=== PATIENT | male | born 1955 | race Caucasian/White ===

== ENCOUNTER → 2017-11-08 07:00 | Outpatient (CLI) | payer OTHER, SELFPAY ==
[2017-11-08 07:05] LABS: MANUAL DIFFERENTIAL MANUAL DIFFERENTIAL (MANUAL DIFF)
[2017-11-08 07:45] LABS: Basophils % 0.4 % (0.1-2.0); Eosinophils # 0.1 K/mm3 (0.0-0.4); Eosinophils % 1.4 % (0.1-12.0); Hematocrit 51.7 % (42.0-52.0); Hemoglobin 16.3 g/dL (14.1-18.0); Lymphocytes # 2.3 K/mm3 (0.7-4.5); Lymphocytes % 35.1 K/mm3 (10-50); Mean Corpuscular HGB Conc 31.5 g/dL (31.8-35.4); Mean Corpuscular Volume 95.3 fl (80-94); Monocytes # 0.4 K/mm3 (0.1-1.0); Monocytes % 6.2 % (1.7-9.3); Neutrophils # 3.7 K/mm3 (1.8-7.8); Platelet Count 174 K/mm3 (142-424); Red Blood Count 5.43 M/mm3 (4.60-6.20); Red Cell Distribution Width 12.9 % (11.5-17.5); White Blood Count 6.6 K/mm3 (4.8-10.8)
[2017-11-08 07:59] LABS: Alanine Aminotransferase 48 U/L (12-78); Albumin Level 3.9 gm/dL (3.4-5.0); Albumin/Globulin Ratio 1.2 (1.1-1.8); Alkaline Phosphatase 74 U/L (46-116); Anion Gap 10.5 mEq/L (5-15); Aspartate Amino Transferase 17 U/L (15-37); Bilirubin,Total 0.3 mg/dL (0.2-1.0); Blood Urea Nitrogen 17 mg/dL (7-18); Calcium 8.5 mg/dL (8.5-10.1); Carbon Dioxide 31 mmol/L (21.0-32.0); Chloride 106 mmol/L (98-107); Chol/HDL Ratio 3.6 (1-3.5); Cholesterol 183 mg/dL (140-200); Creatinine,Serum 0.97 mg/dL (0.70-1.30); Estimated Glomerular Filt Rate 79 ml/min (>60); Free T4 (Free Thyroxine) 0.86 ng/dl (0.76-1.46); GFR (African American) 95 ML/MIN (>60); Globulin 3.2 gm/dl (1.3-3.2); Glucose 110 mg/dL (74-106); HDL Cholesterol 51 mg/dL (27-67); LDL Cholesterol 122 mg/dL (0-130); Potassium 4.5 mmoL/L (3.5-5.1); Prostate Specific Ag Screen 0.1 ng/mL (0.0-4.0); Sodium 143 mmol/L (136-145); Thyroid Stimulating Hormone 3.63 uIU/ml (0.358-3.740); Total Protein,Serum 7.1 gm/dL (6.4-8.2); Triglycerides 48 mg/dL (30-200); VLDL Cholesterol 10 mg/dL (0-40)
[2017-11-08 08:05] LABS: Hemoglobin A1C 5.8 % (0.0-7.0)
[2017-11-08 11:16] LABS: Eosinophils % 1 % (0-3); Lymphocytes % 31 % (10-50); Monocytes % 2 % (2-9); Neutrophils % 66 % (42-76); Platelet Estimate Normal; RBC Morphology Normal; Total Cells Counted 100
[2017-11-11 11:18] LABS: Creatinine, Urine 273.1 mg/dL (Not Estab.); Microalbumin, Urine 14.5 ug/mL (Not Estab.)
== END ==
PROVIDERS: Visit Provider Nurse Practitioner
DX: J44.9 Chronic obstructive pulmonary disease, unspecified (principal); E78.5 Hyperlipidemia, unspecified; I10 Essential (primary) hypertension; N40.0 Benign prostatic hyperplasia without lower urinary tract symptoms; Z13.1 Encounter for screening for diabetes mellitus; Z13.29 Encounter for screening for other suspected endocrine disorder
CPT/HCPCS: 36415; 80053; 80061; 82043; 82570; 83036; 84439; 84443; 85007; 85014; 85018; 85048; 85049; G0103

== ENCOUNTER → 2021-07-26 17:37 | Outpatient (CLI) | payer BC, SELFPAY ==
--- NOTE | 2021-07-26 | XR_ITS ---
PROCEDURE INFORMATION: Exam: XR Chest Exam date and time: 07/26/2021 12:00 AM Age: 65 years old Clinical indication: Prior surgery; Surgery date: 6+ months; Surgery type: Cardiac stents placed. ; Patient HX: Cough, shortness of breath, weakness since early June. Smoker, cardiac stents in place. Covid screening. TECHNIQUE: Imaging protocol: XR of the chest. Views: 1 view. COMPARISON: CR CXR CHEST(2 VIEWS-NOT PORTABLE) 05/29/2016 10:50 AM FINDINGS: Lungs: Unremarkable. No consolidation. Pleural spaces: Unremarkable. No pleural effusion. No pneumothorax. Heart/Mediastinum: Unremarkable. No cardiomegaly. Bones/joints: Unremarkable. IMPRESSION: No acute findings.
[2021-07-26 18:16] LABS: Basophils # 0.1 K/mm3 (0-0.2); Basophils % 1.1 % (0.1-2.0); Eosinophils # 0.1 K/mm3 (0.0-0.4); Eosinophils % 0.8 % (0.1-12.0); Hematocrit 45.4 % (42.0-52.0); Hemoglobin 15.1 g/dL (14.1-18.0); Lymphocytes # 2.9 K/mm3 (0.7-4.5); Lymphocytes % 29.1 % (10-50); Mean Corpuscular HGB Conc 33.3 g/dL (31.8-35.4); Mean Corpuscular Volume 93.3 fl (80-94); Mean Platelet Volume 9.1 fl (7.4-10.4); Monocytes # 0.6 K/mm3 (0.1-1.0); Monocytes % 5.6 % (1.7-9.3); Neutrophils # 6.3 K/mm3 (1.8-7.8); Neutrophils % 63.4 % (37.0-80.0); Platelet Count 209 K/mm3 (142-424); Red Blood Count 4.87 M/mm3 (4.60-6.20); Red Cell Distribution Width 13.4 % (11.5-17.5); White Blood Count 9.9 K/mm3 (4.8-10.8)
[2021-07-26 19:01] LABS: Coronavirus 19 IgG Antibody Negative (Negative); Coronavirus 19 IgM Antibody Negative (Negative)
== END ==
PROVIDERS: PCP Nurse Practitioner; Visit Provider Nurse Practitioner
DX: Z20.822 Contact with and (suspected) exposure to COVID-19 (principal)
CPT/HCPCS: 36415; 71045; 85025; 86328; C9803; U0003; U0005

== ENCOUNTER → 2022-07-18 14:00 | Outpatient (CLI) | payer BC, SELFPAY ==
[2022-07-18 18:47] LABS: Basophils # 0.1 K/mm3 (0-0.2); Eosinophils # 0.2 K/mm3 (0.0-0.4); Eosinophils % 2.4 % (0.1-12.0); Hematocrit 46.5 % (42.0-52.0); Lymphocytes # 2.9 K/mm3 (0.7-4.5); Lymphocytes % 39.8 % (10-50); Mean Corpuscular HGB Conc 32.3 g/dL (31.8-35.4); Mean Corpuscular Hemoglobin 31.2 pg (27.0-31.2); Mean Corpuscular Volume 96.7 fl (80-94); Mean Platelet Volume 9.8 fl (7.4-10.4); Monocytes # 0.4 K/mm3 (0.1-1.0); Monocytes % 5.2 % (1.7-9.3); Neutrophils # 3.8 K/mm3 (1.8-7.8); Neutrophils % 51.5 % (37.0-80.0); Platelet Count 199 K/mm3 (142-424); Red Blood Count 4.81 M/mm3 (4.60-6.20); Red Cell Distribution Width 13.3 % (11.5-17.5); White Blood Count 7.3 K/mm3 (4.8-10.8)
[2022-07-18 18:59] LABS: Alanine Aminotransferase 35 U/L (12-78); Albumin Level 4.2 g/dl (3.5-5.0); Albumin/Globulin Ratio 1.8 (1.1-1.8); Alkaline Phosphatase 94 U/L (38-126); Anion Gap 13.1 mEq/L (5-15); Aspartate Amino Transferase 33 U/L (17-59); Bilirubin,Total 0.4 mg/dl (0.2-1.3); Blood Urea Nitrogen 18 mg/dl (9-20); Calcium 9.3 mg/dl (8.4-10.2); Carbon Dioxide 25 mmol/L (22.0-30.0); Chloride 104 mmol/L (98-107); Chol/HDL Ratio 3.5 (1-3.5); Cholesterol 166 mg/dl (140-200); Estimated Glomerular Filt Rate 113 ml/min (>60); GFR (African American) 137 ML/MIN (>60); Globulin 2.4 g/dL (1.3-3.2); Glucose 88 mg/dl (74-100); HDL Cholesterol 48 mg/dl (40-60); Potassium 4.1 mmoL/L (3.5-5.1); Sodium 138 mmol/L (136-145); Total Protein,Serum 6.6 g/dl (6.3-8.2); Triglycerides 131 mg/dl (30-150); VLDL Cholesterol 26 mg/dL (0-40)
[2022-07-18 19:10] LABS: Direct LDL Cholesterol 98.46 mg/dL (100-129)
[2022-07-18 19:15] LABS: Hemoglobin A1C 5.9 % (4.0-6.0)
[2022-07-18 19:30] LABS: Thyroid Stimulating Hormone 3.14 uIU/mL (0.465-4.68)
[2022-07-18 19:49] LABS: Vitamin B12 337 pg/mL (239-931)
== END ==
PROVIDERS: PCP Nurse Practitioner; Visit Provider Nurse Practitioner
DX: I10 Essential (primary) hypertension (principal); E78.5 Hyperlipidemia, unspecified; Z79.899 Other long term (current) drug therapy
CPT/HCPCS: 80053; 80061; 82043; 82607; 83036; 84443; 85025

== ENCOUNTER 2022-11-19 16:33 | Emergency (ER) | payer OTHER, SELFPAY ==
--- NOTE | 2022-11-19 16:53 | XR_ITS ---
PROCEDURE INFORMATION: Exam: XR Right Shoulder Exam date and time: 11/19/2022 5:03 PM Age: 67 years old Clinical indication: Pain; Shoulder; Right; Additional info: Pain after lifting heavy object TECHNIQUE: Imaging protocol: Radiologic exam of the right shoulder. Views: 2 or more views. COMPARISON: CR XR CHEST PORTABLE 07/26/2021 5:56 PM FINDINGS: Bones/joints: The acromioclavicular joint is normal. No visible fracture or dislocation. No calcific tendinitis Soft tissues: Normal. IMPRESSION: No visible fracture or dislocation.
[2022-11-19 17:10] VITALS: BP 148/75; PULSE 78; RESP 20; TEMP 36.6; O2SAT 96; BMI 33.0
--- NOTE | 2022-11-19 17:51 | XR_ITS ---
PROCEDURE INFORMATION: Exam: XR Right Scapula Exam date and time: 11/19/2022 5:51 PM Age: 67 years old Clinical indication: Shoulder; Patient HX: Pain in right scapula after lifting a heavy door. TECHNIQUE: Imaging protocol: Radiologic exam of the right scapula. Complete exam. COMPARISON: CR XR CHEST PORTABLE 07/26/2021 5:56 PM FINDINGS: Bones/joints: No visible fracture or dislocation. Soft tissues: Normal. IMPRESSION: No visible fracture or dislocation.
--- NOTE | 2022-11-19 17:52 | EXP.UTC ---
Discharge Plan Disposition Patient Disposition: Home, Self-Care Condition: Good Prescriptions Prescriptions: New methocarbamol 500 mg tablet 500 mg PO BID PRN (Reason: muscle pain) Qty: 12 0RF No Action fluticasone propionate 50 mcg/actuation spray,suspension 1 spray intranasal DAILY Qty: 16 2RF Rx Instructions: administer into each nostril cetirizine 10 mg tablet 10 mg PO DAILY Qty: 90 1RF albuterol sulfate 90 mcg/actuation HFA aerosol inhaler 2 puff inhalation Q6H PRN azithromycin 250 mg tablet See Rx Instructions PO .COMPLEX Qty: 6 0RF Rx Instructions: For 250 mg dose pack: take 500 mg today (day 1), then 250 mg for 4 days (days 2-5) PO bupropion HCl 150 mg tablet extended release 24 hr 150 mg PO DAILY Qty: 90 1RF clopidogrel 75 mg tablet 75 mg PO DAILY Qty: 90 1RF doxazosin 2 mg tablet 1 mg PO DAILY Qty: 45 1RF finasteride 5 mg tablet 5 mg PO DAILY Qty: 90 1RF hydrochlorothiazide 12.5 mg tablet 12.5 mg PO DAILY Qty: 90 1RF losartan 100 mg tablet 100 mg PO DAILY Qty: 90 1RF meloxicam 15 mg tablet 15 mg PO DAILY Qty: 90 1RF metoprolol succinate 50 mg tablet extended release 24 hr 50 mg PO DAILY Qty: 90 1RF rosuvastatin 20 mg tablet 20 mg PO DAILY Qty: 90 1RF Incruse Ellipta 62.5 mcg/actuation blister with device 1 inh inhalation DAILY 90 Days Qty: 3 1RF Referrals Follow up/Referrals: Shai Au JR, MD [Physician] - See instructions (Call office for appointment if pain continues) Jazmyne Gurrola MD [Primary Care Provider] - See instructions Activity Restrictions/Add. Instructions Additional Instructions/Restrictions: *Ibuprofen fouzia 6 hours with meal as needed for pain/inflammation if you can take it *Not additional anti-inflammatory like motrin, aleve, advil with the above amount of ibuprofen. You can still take Tylenol every 4 hours as needed if you need something else for pain *Ice 20 minutes every 2 hours for the first 48 hours after the initial injury followed by moist heat every 20 minutes 3-4 times a day to affected area *Muscle relaxer every 12 hours as needed for muscle spasms but remember, it WILL cause drowsiness You cannot take it and drive, operate machinery or care for small children. *Keep this area active, no movement leads to more stiffness, However take it easy and avoid heavy lifting pushing or pulling *Follow up with you family doctor if no improvement for further treatment Clinical Impressions Clinical Impression: Right shoulder strain Stand Alone Forms Stand Alone Forms: Work/School Release Instructions Patient Instructions: DI for Shoulder Pain [place]charge [place] [facility] [place] Stated complaint: WC 11/15@1100 Injured R Shoulder Mode of Arrival: Ambulatory Source of Information: Patient Limitations: No Limitations Time Seen by Provider: 11/19/22 17:52 Description of Symptoms (Recalled from Triage Doc. by RN): PATIENT C/O RIGHT SHOULDER PAIN. HE STATES HE WAS UNLOADING A CAR DOOR AT WORK ON FRIDAY AND INJURED THE SHOULDER HEENT Symptoms (Recalled from RN notes): No Resp Symptoms (Recalled from RN notes): No Skin Symptoms (Recalled from RN notes): No MS Symptoms (Recalled from RN notes): Yes Functional Status (Recalled from RN notes): WNL History of Present Illness Provider Complaint: Patient states that he was unloading a door Friday at work and the weight shifted on his right shoulder States that he felt a pop in his right shoulder blade area and has been having pain ever since in shoulder blade area and right shoulder States that area feels tight like he may have pulled or torn a muscle States that he hasnt been able to lift up anything since without having pain but is able to move area and raise arm just not able to lift anything Related Data Home Medications Medication Instructions Recorded Confirmed albuterol sulfate 90 mcg/actuation 2 puff inhalation
[2022-11-19 18:45] VITALS: BP 148/75; PULSE 78; RESP 20; TEMP 36.6; O2SAT 96
== END 2022-11-19 18:52 | disposition home or self-care (01) ==
PROVIDERS: Emergency Provider Nurse Practitioner; PCP Family Medicine
DX: S43.401A Unspecified sprain of right shoulder joint, initial encounter (principal); X50.0XXA Overexertion from strenuous movement or load, initial encounter
CPT/HCPCS: 73010; 73030; 99212; 99214; G0463

== ENCOUNTER 2024-04-25 04:40 | Inpatient (IN) | payer BC, SELFPAY ==
[2024-04-25] VITALS (20 sets, daily range): BP systolic 120–157; BP diastolic 69–88; PULSE 53–62; RESP 16–27; TEMP 36.4–36.8; O2SAT 90–99; BMI 31.4; BMI 34.0; BMI 33.7
--- NOTE | 2024-04-25 04:43 | ECG_ITS ---
APPROVED REPORT Exam: Resting ECG HR:63 bpm ECG Measurements Heart Rate 63 AXES SC 197 P 9 QRSd 109 QRS 34 QT 411 T 86 QTc 419 Conclusion SINUS RHYTHM INDETERMINATE AXIS ST ELEVATION, CONSIDER INFERIOR INJURY [MARKED ST ELEVATION W/O NORMALLY INFLECTED T-WAVE IN II/aVF] ACUTE SC Elevation in lead II, 3, aVF with ST depression in lead I, aVL, V2. Ischemic changes of inferior distribution STEMI Electronically signed by : AIDA MCCALL, 04/25/2024 06:54:36
--- NOTE | 2024-04-25 04:45 | PC.NURSE ---
Late Entry: @ 416- Report received from [place] EMT-P with suspected STEMI. Gave phone # for STEMI phone to received outside EKG and pt information to pre-register pt in [facility]. Mr Mar reports ETA 20min. @ 418- supervisor product inspection notified of the above information, as well as Dr. Ocampo. @ 419- 12 lead image received to [facility] phone. This image was viewed by Dr. Ocampo and forwarded to Dr. Meneses. Dr. Ocampo s/w Dr. Meneses and he states he would like the CATH team to be called. @ 421- Rosman notified to call the cath team in. @ 438- Ambulance arrived in ER ambulance bay @ 439- pt taken to trauma room 2 and bedside report received. EMS gave 324 mg Aspirin & 3x Nitro 0.4mg SL (last dose @ 433). @ 442- EKG obtained that showed STEMI with Sinus rhythm, rate 63, normal axis, normal MS and QTc, patient has greater than [address] elevation in lead II, 3, aVF, he has ST depression in lead I, aVL, V2. - per Dr. Ocampo note. @ 443- Dr. Ocampo s/w Dr. Meneses. Pt is being prepped. Rosman notified that this case is a STEMI. Asked to be paged. Dr. Meneses would like @ 444- Labs drawn, [address] to Left arm (by EMS), pt placed on STEMI pads and on Zoll monitoring, full set of VS obtained. Verifying home meds.
--- NOTE | 2024-04-25 04:47 | XR_ITS ---
PROCEDURE INFORMATION: Exam: XR Chest Exam date and time: 04/25/2024 4:50 AM Age: 68 years old Clinical indication: Pain; Chest pressure; Additional info: Cp TECHNIQUE: Imaging protocol: Radiologic exam of the chest. Views: 1 view. COMPARISON: CR XR CHEST PORTABLE 07/26/2021 5:56 PM FINDINGS: Lungs: Unremarkable. No consolidation. Pleural spaces: Unremarkable. No pleural effusion. No pneumothorax. Heart/Mediastinum: Unremarkable. No cardiomegaly. Bones/joints: Unremarkable. IMPRESSION: No acute findings.
--- NOTE | 2024-04-25 04:49 | HMH.EDCP ---
Discharge Plan Disposition Patient Disposition: Admitted Condition: Fair Clinical Impressions Clinical Impression: ST elevation (STEMI) myocardial infarction Qualifiers: Involved coronary artery: unspecified coronary artery Qualified Code(s): I21.3 - ST elevation (STEMI) myocardial infarction of unspecified site Discharge ED Provider: Genesis Ocampo HPI General Chief Complaint: Chest Pain Stated Complaint: Left sided chest pain, EMS STEMI Time Seen by Provider: 04/25/24 04:40 History of Present Illness HPI narrative: 68-year-old male with history of CAD, 2 prior stents, hypertension presents to the ER with left-sided chest pain that started approximately 7 hours prior to arrival. Patient states nothing seems to make it better or worse. Initially it was a 10 out of 10 radiating to the left arm. He eventually called EMS who gave him 324 mg of aspirin as well as 3 sublingual nitro. After receiving these medications, patient states his pain is down to a 3. Patient reports he does not have any headache, dizziness, nausea, vomiting, abdominal pain. He reported mild shortness of breath when his pain was worse but states this is improved. EMS reported no other medications in route. Related Data Home Medications ?Medication ?Instructions ?Recorded ?Confirmed albuterol sulfate 90 mcg/actuation 2 puff inhalation Q6H PRN 06/12/22 01/27/24 aerosol inhaler Previous Rx's ?Medication ?Instructions ?Recorded cetirizine 10 mg tablet 10 mg PO DAILY #90 tabs 06/12/22 fluticasone propionate 50 1 spray intranasal DAILY #16 grams 06/12/22 mcg/actuation nasal spray,suspension umeclidinium 62.5 mcg/actuation 1 inh inhalation DAILY 90 days #3 07/18/22 blister powder for inhalation ea (Incruse Ellipta) bupropion HCl 150 mg 24 hr tablet, See Rx Instructions .Route 01/13/23 extended release .COMPLEX #90 tabs hydrochlorothiazide 12.5 mg tablet See Rx Instructions .Route 01/13/23 .COMPLEX #90 tabs nicotine (polacrilex) 4 mg gum 4 mg buccal Q1H #100 ea 09/02/23 clopidogrel 75 mg tablet See Rx Instructions .Route 12/26/23 .COMPLEX #90 tabs doxazosin 2 mg tablet See Rx Instructions .Route 12/26/23 .COMPLEX #45 tabs finasteride 5 mg tablet See Rx Instructions .Route 12/26/23 .COMPLEX #90 tabs losartan 100 mg tablet See Rx Instructions .Route 12/26/23 .COMPLEX #90 tabs meloxicam 15 mg tablet See Rx Instructions .Route 12/26/23 .COMPLEX #90 tabs metoprolol succinate 50 mg See Rx Instructions .Route 12/26/23 tablet,extended release 24 hr .COMPLEX #90 tabs rosuvastatin 20 mg tablet See Rx Instructions .Route 12/26/23 .COMPLEX #90 tabs cefdinir 300 mg capsule 300 mg PO BID #20 caps 01/27/24 Allergies Allergy/AdvReac Type Severity Reaction Status Date / Time No Known Allergies Allergy Verified 01/27/24 15:31 [facility] Disclaimer: The information contained in this section may have been updated after the patient was seen, as this information can be updated by other users. Medical History (Updated 04/25/24 @ 06:48 by Michael Bhatia APRN) Tenosynovitis of right hand Radicular pain of right upper extremity Upper back pain on right side Varicosities of leg BPH (benign prostatic hyperplasia) Osteoarthritis ASCVD (arteriosclerotic cardiovascular disease) COPD (chronic obstructive pulmonary disease) Hyperlipidemia Essential hypertension Surgical History History of bilateral cataract extraction (~2019) History of heart artery stent (~2006) History of colonoscopy (~2015) History of transurethral resection of prostate Social History Smoking Status: Current every day smoker tobacco type: cigarettes packs per day: 1 alcohol intake: never current occupational status: employed Travel in the last 8 weeks: None ROS Obtained: Yes All systems reviewed & no additional complaints except as documented Po
--- NOTE | 2024-04-25 04:52 | PC.NURSE ---
Pt groin and wrist shved, placed in gown, placed on zoll
--- NOTE | 2024-04-25 04:53 | IR_ITS ---
APPROVED REPORT Patient Location: Emergent Tray Drier: BRYN Marcelino RT (R) PROCEDURES Left heart catheterization Left ventriculogram Selective coronary angiogram Drug-eluting stent deployment to the proximal mid and distal right coronary artery in a contiguous manner Drug-eluting stent deployment to the proximal LAD INDICATION Acute inferior ST elevation myocardial infarction, Severe multivessel disease with proximal LAD stenosis, Coronary artery disease Informed consent was obtained prior to the procedure. COMPLICATIONS NONE Estimated Blood Loss: LESS THAN 10 ML TECHNIQUE One percent lidocaine used to anesthetize the right anterior aspect of the wrist. The right radial artery was accessed via the Seldinger technique. A 6 [place] sheath was placed in the right radial artery, a [place] catheter was placed in the right coronary artery and a Choice PT extra-support wire was placed distally. Therapeutic heparin was already administered in the ER giving a therapeutic ACT. A 3.5 x 38 mm [place] frontier stent was deployed in the proximal right coronary artery at 14 ken reducing the critical stenosis to 0%. Additional haziness and disease was identified distally therefore a 3 mm x 38 mm [place] frontier stent was placed distal to the for stent is still overlapping and deployed at 14 ken. The balloon was brought back several millimeters and then deployed at 24 ken to post dilate and mesh the 2 stents. Excellent angiographic results were obtained CLARIBEL II flow was present at the beginning the procedure with CLARIBEL-3 flow at the end of the procedure. Following this left coronary angiography was performed which demonstrated severe proximal LAD disease. The Choice PT extra-support wire was placed into the LAD and a 3 mm x 38 mm [place] frontier stent was deployed at 20 ken reducing the severe stenosis to 0%. CLARIBEL-3 flow was present before and after the procedure. At the end of procedure the apparatus was removed the sheath was removed and hemostasis was achieved using TR banding patient was transferred to the postop putting in stable condition ANGIOGRAPHIC RESULTS The left main artery Normal The left anterior descending artery Has complex 40 and 60% stenosis followed by concentric 70% stenosis. The remaining LAD has mild atheromatous plaque. A large first diagonal artery is widely patent. The circumflex artery Is nondominant gives rise to large ramus intermedius which has proximal and mid vessel 20 to 30% stenoses. The circumflex artery itself is small and widely patent The right coronary artery Large and dominant initially with proximal greater than 90% stenosis followed by an additional concentric 90% stenosis. Distally there is hazy 50% in-stent restenosis in the distal segment The B[place]ON ventriculogram reveals Normal 60% The left ventricular end-diastolic pressure 15 mm nicholas IMPRESSION Critical disease in the proximal mid dominant right coronary artery as described above with successful stenting of the proximal mid to distal right coronary critical disease reduced to 0% with 2 contiguous drug-eluting stents Severe proximal LAD disease with successful stenting reducing the severe disease to 0% with 1 drug-eluting stent Normal ejection fraction Normal LVEDP PLAN 1. Plavix 75 mg daily plus aspirin 81 mg daily 2. LDL less than 55 to be achieved with high intensity statin 3. Patient requires 48 hours of continuous telemetry monitoring given the ST elevation myocardial infarction 4. Avoidance of tobacco products 5. Risk factor modification 6. Cardiac rehabilitation 7. Echocardiogram Friday Electronically signed by : Osbaldo Meneses MD 04/25/2024 05:48:12
--- NOTE | 2024-04-25 04:53 | PC.NURSE ---
blood drawn from EMS line and sent to lab
[2024-04-25 05:03] LABS: Basophils # 0.1 K/mm3 (0-0.2); Basophils % 0.7 % (0.1-2.0); Eosinophils # 0.2 K/mm3 (0.0-0.4); Eosinophils % 3.1 % (0.1-12.0); Hematocrit 46.7 % (42.0-52.0); Lymphocytes # 2.7 K/mm3 (0.7-4.5); Lymphocytes % 38.5 % (10-50); Mean Corpuscular HGB Conc 32.2 g/dL (31.8-35.4); Mean Corpuscular Hemoglobin 31.3 pg (27.0-31.2); Mean Corpuscular Volume 97.3 fl (80-94); Mean Platelet Volume 8.2 fl (7.4-10.4); Monocytes # 0.4 K/mm3 (0.1-1.0); Monocytes % 6.3 % (1.7-9.3); Neutrophils # 3.6 K/mm3 (1.8-7.8); Neutrophils % 51.4 % (37.0-80.0); Platelet Count 189 K/mm3 (142-424); Red Cell Distribution Width 13.5 % (11.5-17.5); White Blood Count 6.9 K/mm3 (4.8-10.8)
[2024-04-25 05:05] LABS: Albumin Level 3.8 g/dl (3.5-5.0); Chloride 108 mmol/L (98-107); Sodium 137 mmol/L (136-145)
[2024-04-25 05:06] LABS: Potassium 4.1 mmoL/L (3.5-5.1)
--- NOTE | 2024-04-25 05:06 | PC.NURSE ---
Dr. Ocampo notified this RN while I was preparing to administer Brillinta, that Dr. Meneses wants to stop Brillinta and changed to Plavix 75mg.
[2024-04-25 05:08] LABS: Alanine Aminotransferase 35 U/L (12-78); Albumin/Globulin Ratio 1.5 (1.1-1.8); Alkaline Phosphatase 60 U/L (38-126); Anion Gap 7.1 mEq/L (5-15); Aspartate Amino Transferase 29 U/L (17-59); Bilirubin,Total 0.5 mg/dl (0.2-1.3); Blood Urea Nitrogen 19 mg/dl (9-20); Calcium 8.2 mg/dl (8.4-10.2); Carbon Dioxide 26 mmol/L (22.0-30.0); Creatinine Clearance Estimated 122 mL/min (50-200); Estimated Glomerular Filt Rate 112 ml/min (>60); GFR (African American) 136 ML/MIN (>60); Globulin 2.5 g/dL (1.3-3.2); Glucose 115 mg/dl (74-100); Total Protein,Serum 6.3 g/dl (6.3-8.2)
--- NOTE | 2024-04-25 05:09 | PC.NURSE ---
Pt going to [facility] Changeover Operator with Yamila Mar RN and Shelbi Edwards RN. Stemi report filled out, new set of Pt labels, and EKG from ER sent with pt and staff. Pt continues to be on zoll and cardiac monitoring
[2024-04-25 05:21] LABS: Troponin I 0.01 ng/ml (0.00-0.034)
--- NOTE | 2024-04-25 06:05 | PC.NURSE ---
patient arrived to floor via stretcher from [facility] Supervisor @06:05
--- NOTE | 2024-04-25 06:35 | PC.NURSE ---
TRN attempted to release 1ml from TR band at 0635 per lab pack chemist post vital sheet. Patient with moderate bleeding noted. Air added back to TR until bleeding stopped. Will attempt to release 1ml of air in 15 min.
--- NOTE | 2024-04-25 06:42 | EXP.HP ---
History of Present Illness *Admission Date: 04/25/24 *Reason for visit:: CP *History of present illness: This is a 68-year-old male with history of CAD, 2 prior stents, hypertension presents to the ER with left-sided chest pain that started approximately 7 hours prior to arrival. Patient states nothing seems to make it better or worse. Initially it was a 10 out of 10 radiating to the left arm. He eventually called EMS who gave him 324 mg of aspirin as well as 3 sublingual nitro. After receiving these medications, patient states his pain is down to a 3. Patient reports he does not have any headache, dizziness, nausea, vomiting, abdominal pain. He reported mild shortness of breath when his pain was worse but states this is improved. EMS reported no other medications in route. Emergently taken to laboratory technician Patient seen after procedure. hemodinamically stable. still under sedation effects. at bedside confirm history. [facility] Disclaimer: The information contained in this section may have been updated after the patient was seen, as this information can be updated by other users. Medical History (Updated 04/25/24 @ 06:54 by Michael Bhatia APRN) Tenosynovitis of right hand Radicular pain of right upper extremity Upper back pain on right side Varicosities of leg BPH (benign prostatic hyperplasia) Osteoarthritis ASCVD (arteriosclerotic cardiovascular disease) COPD (chronic obstructive pulmonary disease) Hyperlipidemia Essential hypertension Surgical History History of bilateral cataract extraction (~2019) History of heart artery stent (~2006) History of colonoscopy (~2015) History of transurethral resection of prostate Social History Smoking Status: Current every day smoker tobacco type: cigarettes packs per day: 1 alcohol intake: never current occupational status: employed Travel in the last 8 weeks: None Review of Systems Review of Systems Review of systems:: pertinent systems reviewed and negative unless documented below Meds Home Medications and Allergies Home Medications ?Medication ?Instructions ?Recorded ?Confirmed ?Type clopidogrel 75 mg tablet 75 mg PO DAILY 04/25/24 04/25/24 History doxazosin 2 mg tablet 1 mg PO DAILY 04/25/24 04/25/24 History finasteride 5 mg tablet 5 mg PO DAILY 04/25/24 04/25/24 History hydrochlorothiazide 25 mg tablet 25 mg PO DAILY 04/25/24 04/25/24 History losartan 100 mg tablet 100 mg PO DAILY 04/25/24 04/25/24 History meloxicam 15 mg tablet 15 mg PO DAILY 04/25/24 04/25/24 History metoprolol succinate 50 mg 50 mg PO DAILY 04/25/24 04/25/24 History tablet,extended release 24 hr rosuvastatin 20 mg tablet 20 mg PO DAILY 04/25/24 04/25/24 History New Prescriptions to Start Prescriptions: Allergies Allergy/AdvReac Type Severity Reaction Status Date / Time No Known Allergies Allergy Verified 01/27/24 15:31 Exam Data for Last 24 hours Vital signs and Labs for Last 24 Hours: Temp Pulse Resp BP Pulse Ox O2 Del Method 97.6 F 60 20 123/69 91 L Room Air 04/25/24 06:00 04/25/24 05:59 04/25/24 05:59 04/25/24 05:59 04/25/24 05:59 04/25/24 05:59 Laboratory Results - last 24 hr 04/25/24 04:46: WBC 6.9, RBC 4.80, Hgb 15.0, Hct 46.7, MCV 97.3 H, MCH 31.3 H, MCHC 32.2, RDW 13.5, Plt Count 189, MPV 8.2, Neut % (Auto) 51.4, Lymph % (Auto) 38.5, [place] % (Auto) 6.3, Eos % (Auto) 3.1, Baso % (Auto) 0.7, Neut # (Auto) 3.6, Lymph # (Auto) 2.7, [place] # (Auto) 0.4, Eos # (Auto) 0.2, Baso # (Auto) 0.1, Sodium 137, Potassium 4.1, Chloride 108 H, Carbon Dioxide 26, Anion Gap 7.1, BUN 19, Creatinine 0.70, Estimated Creat Clear 122, Estimated GFR 112, Est GFR ( Amer) 136, Glucose 115 H, Calcium 8.2 L, Total Bilirubin 0.5, AST 29, ALT 35, Alkaline Phosphatase 60, Troponin I 0.01, Total Protein 6.3, Albumin 3.8, Globulin 2.5, Albumin/Globulin Ratio 1.5
--- NOTE | 2024-04-25 06:50 | PC.NURSE ---
1ml removed from TR band at this time. No bleeding noted at this time.
[2024-04-25 07:25] LABS: Basophils # 0.1 K/mm3 (0-0.2); Basophils % 0.9 % (0.1-2.0); Eosinophils # 0.2 K/mm3 (0.0-0.4); Eosinophils % 2.5 % (0.1-12.0); Hemoglobin 14.5 g/dL (14.1-18.0); Lymphocytes # 2.2 K/mm3 (0.7-4.5); Lymphocytes % 34.8 % (10-50); Mean Corpuscular HGB Conc 32.2 g/dL (31.8-35.4); Mean Corpuscular Hemoglobin 31.1 pg (27.0-31.2); Mean Corpuscular Volume 96.6 fl (80-94); Mean Platelet Volume 9.2 fl (7.4-10.4); Monocytes # 0.4 K/mm3 (0.1-1.0); Monocytes % 6.7 % (1.7-9.3); Neutrophils # 3.4 K/mm3 (1.8-7.8); Neutrophils % 55.1 % (37.0-80.0); Platelet Count 175 K/mm3 (142-424); Red Blood Count 4.66 M/mm3 (4.60-6.20); Red Cell Distribution Width 13.8 % (11.5-17.5); White Blood Count 6.2 K/mm3 (4.8-10.8)
[2024-04-25 07:34] LABS: CATHL Activated Clotting Time > 400 SEC (74-125)
[2024-04-25 07:36] LABS: Anion Gap 5.3 mEq/L (5-15); Blood Urea Nitrogen 18 mg/dl (9-20); Calcium 8.2 mg/dl (8.4-10.2); Carbon Dioxide 27 mmol/L (22.0-30.0); Chloride 108 mmol/L (98-107); Creatinine Clearance Estimated 121 mL/min (50-200); Estimated Glomerular Filt Rate 112 ml/min (>60); GFR (African American) 136 ML/MIN (>60); Glucose 109 mg/dl (74-100); Potassium 4.3 mmoL/L (3.5-5.1); Sodium 136 mmol/L (136-145)
[2024-04-25 08:07] LABS: Troponin I 0.08 ng/ml (0.00-0.034)
--- NOTE | 2024-04-25 09:35 | HMH.PHAINT1 ---
Pharmacy Intervention Comments: MEDICATION RECONCILIATION COMPLETED ON PATIENT USING EXTERNAL FILL HISTORY FROM PHARMACY. -[facility] WOOD, [place]
--- NOTE | 2024-04-25 09:37 | PC.NURSE ---
Addendum entered by Grazyna Hurtado RN 04/25/24 11:16: 1020 2ml of air removed 1040 TR band removed, site cleaned with chlorhexadine and dressed with t/t Original Note: start of shift (729) TR band was taken down by 2ml of air. 0745 1ml of air taken out r/t suspicion of bleeding at site. 0750 2ml of air added to TR band 0900 2ml of air removed 0915 2ml of air removed 0930 2ml of air removed 0945 2ml of air removed
[2024-04-25 11:38] LABS: Troponin I 0.14 ng/ml (0.00-0.034)
--- NOTE | 2024-04-25 12:25 | PC.NURSE ---
offered to assist pt up to chair for lunch. pt states that he doesn't think he wants to get up to the chair today. states that he is enjoying laying in bed and resting.
[2024-04-26] VITALS (7 sets, daily range): BP systolic 129–146; BP diastolic 72–82; PULSE 59–80; RESP 16–19; TEMP 36.6–37.2; O2SAT 93–97; BMI 33.6
--- NOTE | 2024-04-26 05:50 | PC.NURSE ---
Alert and oriented. Independent in the room. No complaints throughout the shift. R radial sight, dressing CDI. Pt is ordered echo this AM, pt has not had anything to eat or drink since midnight. Call light in reach.
--- NOTE | 2024-04-26 06:39 | CA_ITS ---
APPROVED REPORT EXAM: Comprehensive 2D, Doppler, and color-flow Echocardiogram Front Office Help: Gina Bedolla RT(R) Ht: 6 ft 2 in Wt: 265lbs BSA: 2.45 BP: 123/69 mmHg Indications: STEMI, CP, COPD, smoker, HTN, hyperlipidemia, 3 cardiac stents 04/25/24. Echo Enhancing Agent Indication: Endocardial border delineation Agent(s) / Amount(s) Used: Definity 2 cc 2D Dimensions Left Atrium 4.22 cm M: 3.0 - 4.0 LVEF (Case's) 57.90 % M: 52 - 72 LVOT 2.09 cm (M/F) 1.5-2.5 LV Volume 108.00 mL M: 62 - 150 LV Volume Index 44.1 mL/m2 M: 34 - 74 EF AP4 49.20 % EF AP2 65.7 % EF BP 57.9 % GL Strain -14.4 % M-Mode Dimensions RVDd 2.81 cm (0.9-2.6) LVDd 5.22 cm (3.5-5.7) Ao Diam 3.00 cm (2.0-3.7) LVDs 3.75 cm (3.5-5.7) IVSd 0.94 cm (0.6-1.1) PWd 0.85 cm (0.6-1.1) EF (Teich) 54.10% FS 28.20% EDV (Teich) 130.70 mL ESV (Teich) 60.00 mL LV Diastology E Decel Time 236 (160-240 msec) E/A Ratio 1.1 MED E' 7.3 (>= 7 cm/sec) E'/MED E' Ratio 10.11 (<= 14) LAT E' 10.3 (>= 10 cm/sec) E/LAT E' Ratio 7.17 (<= 14) Mitral Valve MV E Max Mike. 74.0 (40-130 cm/s) MV A Velocity 65.0 (40-130 cm/s) E/A Ratio 1.13 MV Decel. Time 236 (160-240 ms) Left Ventricle The left ventricle is normal size. The left ventricular systolic function is normal. The left ventricular ejection fraction is within the normal range. There is increased LV wall thickness. There is normal LV segmental wall motion. The left ventricular diastolic function is normal. No left ventricle thrombus noted on this study. LVEF is 55%. Right Ventricle The right ventricle not very well visualized, but grossly appears normal in size and function. Atria The left atrium size is normal. The right atrium size is normal. There is no Doppler evidence of interatrial shunt. Aortic Valve The aortic valve is mildly thickened. There is no aortic valvular stenosis. Trace aortic regurgitation. Mitral Valve The mitral valve is normal in structure. No evidence of mitral valve stenosis. Trace mitral regurgitation. Tricuspid Valve The tricuspid valve leaflets are thin and pliable. Trace tricuspid regurgitation. There is insufficient TR jet to estimate RVSP. Pulmonic Valve The pulmonary valve is normal in structure. Trace pulmonic regurgitation. Great Vessels The aortic root is normal in size. The ascending aorta is normal in size. IVC is normal in size and collapses >50% with inspiration. Pericardium There is a trivial, anterior pericardial effusion. No echo indications of tamponade. Conclusion Normal biventricular systolic function. No significant valvular stenosis or regurgitation. Electronically signed by : Norma Eaton MD 04/26/2024 11:09:50
[2024-04-26 07:19] LABS: Cholesterol 153 mg/dl (140-200); Triglycerides 136 mg/dl (30-150); VLDL Cholesterol 27 mg/dL (0-40)
[2024-04-26 07:20] LABS: Chol/HDL Ratio 4.6 (1-3.5); HDL Cholesterol 33 mg/dl (40-60)
[2024-04-26 07:30] LABS: Direct LDL Cholesterol 83.69 mg/dL (100-129)
[2024-04-26 08:15] LABS: Hemoglobin A1C 6.1 % (4.0-6.0)
[2024-04-26 09:37] LABS: 25-OH Vitamin D, Total 29.7 ng/mL (30-100)
--- NOTE | 2024-04-26 09:56 | EXP.CARD.CON ---
History of Present Illness History of Present Illness Consult date: 04/26/24 Requesting physician: Edson Dinh Consult reason: chest pain Chief complaint: chest pain History of present illness: This is a 68-year-old white gentleman who presents to the emergency department with complaints of chest pain. He has a past medical history of coronary artery disease with prior stenting, hypertension and hyperlipidemia. The patient states that he started having chest pain on Friday night. He states that this was in the left side of his chest and was a severe pressure sensation and radiated to the bilateral arms and caused them to feel heavy. He states that this was a 10 out of 10 pain. He states that he was short of breath with the chest pain. Denies any nausea or diaphoresis. He states that nothing was making the pain worse or better. He states that this was much worse than his chest pain in the past which required stenting so he decided to come to the emergency department. The patient was found to have a STEMI and taken directly to the cardiac catheterization laboratory and underwent stenting to the right coronary artery with 2 stents and stenting to the LAD with 1 stent. He tolerated the procedure well. This morning he denies any chest pain or pressure. He denies any shortness of breath or edema. He denies any fever, chills, nausea, vomiting, diarrhea, PND orthopnea. He states that he feels much better today. [facility] Disclaimer: The information contained in this section may have been updated after the patient was seen, as this information can be updated by other users. Medical History (Updated 04/26/24 @ 10:00 by Vilma Lauren APRN) Current smoker Coronary artery disease Tenosynovitis of right hand Radicular pain of right upper extremity Upper back pain on right side Varicosities of leg BPH (benign prostatic hyperplasia) Osteoarthritis ASCVD (arteriosclerotic cardiovascular disease) COPD (chronic obstructive pulmonary disease) Hyperlipidemia Essential hypertension Surgical History (Updated 04/26/24 @ 10:00 by Vilma Lauren APRN) Stented coronary artery History of bilateral cataract extraction (~2019) History of heart artery stent (~2006) History of colonoscopy (~2015) History of transurethral resection of prostate Social History Smoking Status: Current every day smoker tobacco type: cigarettes packs per day: 1 alcohol intake: never current occupational status: employed Travel in the last 8 weeks: None Review of Systems Review of Systems Review of systems:: pertinent systems reviewed and negative unless documented below Constitutional Constitutional: Reports system reviewed and no additional complaints, except as documented Eyes Eyes: Reports system reviewed and no additional complaints, except as documented ENT Ears, Nose, Mouth, and Throat: Reports system reviewed and no additional complaints, except as documented *Cardiovascular Cardiovascular: Reports system reviewed and no additional complaints, except as documented *Respiratory Respiratory: Reports system reviewed and no additional complaints, except as documented *Gastrointestinal Gastrointestinal: Reports system reviewed and no additional complaints, except as documented *Genitourinary Genitourinary: Reports system reviewed and no additional complaints, except as documented *Musculoskeletal Musculoskeletal: Reports system reviewed and no additional complaints, except as documented Integumentary/Breasts Skin/Breast: Reports system reviewed and no additional complaints, except as documented *Neurologic Neurologic: Reports system reviewed and no additional complaints, except as documented Psychiatric Psychiatric: Reports system reviewed and no additional complaints, except as documented Endocrine Endocrine: Reports system reviewed and no additional complaints, except as documented Hematologic/Lymphatic
--- NOTE | 2024-04-26 11:55 | EXP.ACUTE.PN ---
Subjective *Date: 04/26/24 *Time: 11:55 Interval history: Did well overnight. No arrhythmias on telemetry. Tolerating p.o. intake. Remains chest pain-free and on room air. Medical Exam Vital signs and Labs for Last 24 Hours: Vital Signs Temp Pulse Pulse Resp BP Pulse Ox O2 Del Method 04/26/24 11:32 97.9 F 62 18 134/82 97 Room Air 04/26/24 11:00 Room Air 04/26/24 09:00 Room Air 04/26/24 08:00 70 04/26/24 08:00 Room Air 04/26/24 08:00 98.1 F 68 18 143/80 H 96 Room Air 04/26/24 06:39 Room Air 04/26/24 05:00 Room Air 04/26/24 04:00 59 L 04/26/24 04:00 97.9 F 59 L 16 137/75 93 L Room Air 04/26/24 03:00 Room Air 04/26/24 01:00 Room Air 04/26/24 00:00 60 04/26/24 00:00 99.0 F 66 16 129/74 93 L Room Air 04/25/24 23:00 Room Air 04/25/24 21:00 Room Air 04/25/24 20:00 Room Air 04/25/24 20:00 62 04/25/24 19:57 98.2 F 57 L 16 157/79 H 96 Room Air 04/25/24 19:00 Room Air 04/25/24 17:00 Room Air 04/25/24 16:00 60 04/25/24 16:00 97.9 F 60 22 124/74 98 Room Air 04/25/24 15:00 Room Air 04/25/24 13:33 Room Air 04/25/24 13:00 60 18 142/76 H 91 L Room Air 04/25/24 12:00 60 04/25/24 12:00 98.1 F 55 L 18 130/71 95 Room Air Intake and Output 04/25/24 04/26/24 04/26/24 23:59 07:59 15:59 Intake Total 660 / 1160 240 / 240 Output Total 0 / 900 1 / 1 0 / 1 Balance 660 / 260 -1 / 239 240 / 239 Intake: Intake, Oral Amount 660 / 1160 240 / 240 Intake, Oral Supplement Amount 0 / 0 Output: Output, Urine Amount 0 / 900 0 Other: Number of Voids 0 Number of Unmeasured Voids 1 09 08 Weight 118.977 kg Patient Weight 04/26/24 23:59 Weight 118.977 kg Laboratory Results - last 24 hr 04/26/24 05:36: Hemoglobin A1c 6.1 H, Triglycerides 136, Cholesterol 153, LDL Cholesterol Direct 83.69 L, VLDL Cholesterol 27, HDL Cholesterol 33 L, Cholesterol/HDL Ratio 4.6 H, 25-OH Vitamin D Total 29.7 L I & O for Labs for Last 24 Hours: Intake & Output 04/23/24 04/24/24 04/25/24 04/26/24 23:59 23:59 23:59 23:59 Intake Total 1160 / 1160 240 / 240 Output Total 900 / 900 Balance 260 / 260 239 / 239 Weight 119.476 kg 118.977 kg Constitutional: Present no acute distress, obese and cooperative Head: Present atraumatic and normocephalic ENT: Present normal exam Respiratory: Present normal respiratory effort; Absent rhonchi, wheezes or crackles Cardiac: Present Reg Rate and Rhythm GI: Present normal bowel sounds; Absent tenderness Extremities: Present normal inspection and full ROM Skin: Present intact; Absent erythema Neuro: Present Grossly Intact, alert, awake, oriented x 3 and moves all extremities Assessment and Plan *Assessment and plan (1) ST elevation (STEMI) myocardial infarction: Status: Acute Qualifiers: Involved coronary artery: unspecified coronary artery Qualified Code(s): I21.3 - ST elevation (STEMI) myocardial infarction of unspecified site Category: Medical Code(s): I21.3 - ST elevation (STEMI) myocardial infarction of unspecified site (2) Status post left heart catheterization (LHC): Status: Acute Category: Medical Code(s): Z98.890 - Other specified postprocedural states (3) History of heart artery stent: Status: Acute Category: Surgical Code(s): Z95.5 - Presence of coronary angioplasty implant and graft (4) ASCVD (arteriosclerotic cardiovascular disease): Status: Acute Category: Medical Code(s): I25.10 - Atherosclerotic heart disease of [place] coronary artery without angina pectoris (5) COPD (chronic obstructive pulmonary disease): Status: Acute Qualifiers: COPD type: unspecified COPD Qualified Code(s): J44.9 - Chronic obstructive pulmonary disease, unspecified
--- NOTE | 2024-04-26 16:40 | PC.NURSE ---
pt has remained a&ox4 this shift. pt also has remained on room air. pt is still ambulating independently in room. pt has had no complaints this shift. echo was completed this morning. rt radial cath site dsg remains cdi. cardiology reordered pt home medications this morning. no new orders at this time. call light within reach.
[2024-04-27] VITALS: BP 133/71; PULSE 63; PULSE 64; RESP 16; TEMP 36.5; O2SAT 94
[2024-04-27 04:00] VITALS: BP 134/70; PULSE 60; PULSE 67; RESP 16; TEMP 36.7; O2SAT 93; BMI 33.3
--- NOTE | 2024-04-27 05:23 | PC.NURSE ---
Patient is alert and oriented x4. Patient has rested intermittently throughout the night. Patient reported that he was feeling much better today. He was given crackers and a Diet Pepsi for a snack. He received atorvastatin at bedtime per NOV. He has not reported any sort of chest pain or any abnormal symptoms this shift. Patient's lung sounds were clear and his bowel sounds are active. He has been tolerating ambulation very well and reported using the bathroom a few times this shift. He has been running sinus bradycardia on telemetry; other vital signs have remained stable this shift. His right radial cath site was observed. It is closed, healing, and no bleeding or drainage was present; he has approached 48 hours post-cath. Tegaderm and gauze dressing was removed during the previous shift after his shower. Patient has not had any complaints this shift. He is currently resting in bed watching TV. Call light is within reach.
[2024-04-27 06:29] LABS: Albumin Level 3.8 g/dl (3.5-5.0); Basophils # 0.1 K/mm3 (0-0.2); Basophils % 0.6 % (0.1-2.0); Chloride 107 mmol/L (98-107); Eosinophils # 0.1 K/mm3 (0.0-0.4); Eosinophils % 1.5 % (0.1-12.0); Hematocrit 46.3 % (42.0-52.0); Hemoglobin 14.7 g/dL (14.1-18.0); Lymphocytes % 24.7 % (10-50); Mean Corpuscular HGB Conc 31.7 g/dL (31.8-35.4); Mean Corpuscular Hemoglobin 30.9 pg (27.0-31.2); Mean Corpuscular Volume 97.7 fl (80-94); Mean Platelet Volume 9.1 fl (7.4-10.4); Monocytes # 0.6 K/mm3 (0.1-1.0); Monocytes % 6.7 % (1.7-9.3); Neutrophils # 5.4 K/mm3 (1.8-7.8); Neutrophils % 66.5 % (37.0-80.0); Platelet Count 184 K/mm3 (142-424); Potassium 3.8 mmoL/L (3.5-5.1); Red Blood Count 4.74 M/mm3 (4.60-6.20); Red Cell Distribution Width 13.8 % (11.5-17.5); Sodium 138 mmol/L (136-145); White Blood Count 8.2 K/mm3 (4.8-10.8)
[2024-04-27 06:32] LABS: Alanine Aminotransferase 28 U/L (12-78); Albumin/Globulin Ratio 1.5 (1.1-1.8); Alkaline Phosphatase 60 U/L (38-126); Anion Gap 7.8 mEq/L (5-15); Aspartate Amino Transferase 24 U/L (17-59); Bilirubin,Total 0.6 mg/dl (0.2-1.3); Blood Urea Nitrogen 12 mg/dl (9-20); Calcium 8.3 mg/dl (8.4-10.2); Carbon Dioxide 27 mmol/L (22.0-30.0); Creatinine Clearance Estimated 119 mL/min (50-200); Estimated Glomerular Filt Rate 96 ml/min (>60); GFR (African American) 117 ML/MIN (>60); Globulin 2.6 g/dL (1.3-3.2); Glucose 101 mg/dl (74-100); Magnesium 2.2 mg/dl (1.6-2.3); Total Protein,Serum 6.4 g/dl (6.3-8.2)
[2024-04-27 08:00] VITALS: BP 133/59; PULSE 64; PULSE 70; RESP 19; TEMP 37.3; O2SAT 95
--- NOTE | 2024-04-27 08:59 | EXP.CARD.PN ---
Subjective Subjective Date: 04/27/24 Time: 08:30 Principal diagnosis: STEMI Interval history: This is a 68-year-old white gentleman who presented to the emergency department found to have a STEMI. He underwent left cardiac catheterization and had stenting to the right coronary artery with 2 drug-eluting stents and 1 stent placed to the LAD. He tolerated the procedure well. The patient has been monitored 48 hours post intervention. He denies any chest pain or pressure. He denies any shortness of breath or edema. He denies any fever, chills, nausea, vomiting, diarrhea, PND orthopnea. His right radial site is healing well with no hematoma noted. The patient states that he is ready to be discharged home. Exam Data for Last 24 hours Vital signs and Labs for Last 24 Hours: Temp Pulse Resp BP Pulse Ox O2 Del Method O2 Flow Rate 99.2 F 64 19 133/59 L 95 Room Air 2 04/27/24 08:00 04/27/24 08:00 04/27/24 08:00 04/27/24 08:00 04/27/24 08:00 04/27/24 06:45 04/25/24 07:30 Laboratory Results - last 24 hr 04/26/24 05:36: 25-OH Vitamin D Total 29.7 L 04/27/24 05:30: WBC 8.2 D, RBC 4.74, Hgb 14.7, Hct 46.3, MCV 97.7 H, MCH 30.9, MCHC 31.7 L, RDW 13.8, Plt Count 184, MPV 9.1, Neut % (Auto) 66.5, Lymph % (Auto) 24.7, [place] % (Auto) 6.7, Eos % (Auto) 1.5, Baso % (Auto) 0.6, Neut # (Auto) 5.4, Lymph # (Auto) 2.0, [place] # (Auto) 0.6, Eos # (Auto) 0.1, Baso # (Auto) 0.1, Sodium 138, Potassium 3.8, Chloride 107, Carbon Dioxide 27, Anion Gap 7.8, BUN 12 D, Creatinine 0.80, Estimated Creat Clear 119, Estimated GFR 96, Est GFR ( Amer) 117, Glucose 101 H, Calcium 8.3 L, Magnesium 2.2, Total Bilirubin 0.6, AST 24, ALT 28, Alkaline Phosphatase 60, Total Protein 6.4, Albumin 3.8, Globulin 2.6, Albumin/Globulin Ratio 1.5 I & O for Last 24 hours: Intake & Output 04/24/24 04/25/24 04/26/24 04/27/24 23:59 23:59 23:59 23:59 Intake Total 1160 / 1160 1829 222 / 222 Output Total 900 / 900 0 / 0 Balance 260 / 260 1828 222 / 222 Weight 263 lb 6.4 oz 262 lb 4.8 oz 259 lb 11.2 oz Constitutional Constitutional: no acute distress and obese *Routine HEENT Exam Head: Present normocephalic and atraumatic ENT: Present mucous membranes moist *Routine Neck Exam Neck: Present supple, full ROM and normal carotid upstroke; Absent JVD, carotid bruit or lymphadenopathy *Routine Respiratory Exam Respiratory: Present CTA bilaterally, normal respiratory effort, able to speak in complete sentences and symmetric chest movement *Routine Cardiovascular Exam Cardiovascular: Present RRR, Normal S1 and Normal S2; Absent murmur or gallop *Routine Abdominal Exam Abdominal: Present soft and normoactive bowel sounds; Absent tenderness, distended or organomegaly *Routine Extremities Exam Extremities: Present full ROM, pulses intact and normal capillary refill; Absent cyanosis, clubbing or edema *Routine Skin Exam Skin: Present intact and warm; Absent erythema *Routine Neurological Exam Neurological: Present alert, oriented X3 and CN II-XII intact; Absent sensory deficit or motor deficit Routine Psychiatric Exam Psychiatric: Present normal affect Progress Note: A&P Assessment and plan (1) ST elevation (STEMI) myocardial infarction: Status: Acute (2) Coronary artery disease: Status: Acute (3) Stented coronary artery: Status: Acute (4) Current smoker: Status: Acute (5) Hyperlipidemia: Status: Acute (6) Essential hypertension: Status: Acute (7) Class 1 obesity with serious comorbidity and body mass index (BMI) of 33.0 to 33.9 in adult: Status: Acute Assessment and Plan Assessment and Plan for All Diagnoses:: Plan: 1. The patient was admitted to the hospital with a STEMI. He underwent left cardiac catheterization and had 2 stents placed to the right coronary artery and 1 stent placed to the LAD. He tolerated the procedure well. He will remain on Plavix and aspirin for dual antiplatel
--- NOTE | 2024-04-27 09:41 | EXP.DC.SUM ---
General Admission date:: 04/25/24 HPI HPI HPI: This is a 68-year-old male with history of CAD, 2 prior stents, hypertension presents to the ER with left-sided chest pain that started approximately 7 hours prior to arrival. Patient states nothing seems to make it better or worse. Initially it was a 10 out of 10 radiating to the left arm. He eventually called EMS who gave him 324 mg of aspirin as well as 3 sublingual nitro. After receiving these medications, patient states his pain is down to a 3. Patient reports he does not have any headache, dizziness, nausea, vomiting, abdominal pain. He reported mild shortness of breath when his pain was worse but states this is improved. EMS reported no other medications in route. Emergently taken to slab lifting engineer Patient seen after procedure. hemodinamically stable. still under sedation effects. at bedside confirm history. Hospital Course Hospital Course Hospital Course: Patient admitted to hospital and diagnosed with non-STEMI. Patient had serial troponins done with elevated troponins noted during hospitalization. Patient underwent cardiac catheterization 04/25/2024, and had 2 stents placed to the right coronary artery and 1 stent placed to the LAD. He tolerated the procedure well. Patient placed on aspirin/Plavix therapy without signs of bleeding during hospitalization. Patient also continued USMAN inhibitor/metoprolol during hospitalization, and discharged on these medications. Patient also had fasted lipid panel checked, and discharged on rosuvastatin medication. Patient chest pain-free after cardiac catheterization, and noted to ambulate in hallway without distress. Patient subsequently discharged home with instructions to follow-up with primary care physician and cardiology in outpatient basis. Exam Data for Last 24 hours Vital signs and Labs for Last 24 Hours: Temp Pulse Resp BP Pulse Ox O2 Del Method O2 Flow Rate 99.2 F 64 19 133/59 L 95 Room Air 2 04/27/24 08:00 04/27/24 08:00 04/27/24 08:00 04/27/24 08:00 04/27/24 08:00 04/27/24 06:45 04/25/24 07:30 Laboratory Results - last 24 hr 04/27/24 05:30: WBC 8.2 D, RBC 4.74, Hgb 14.7, Hct 46.3, MCV 97.7 H, MCH 30.9, MCHC 31.7 L, RDW 13.8, Plt Count 184, MPV 9.1, Neut % (Auto) 66.5, Lymph % (Auto) 24.7, [place] % (Auto) 6.7, Eos % (Auto) 1.5, Baso % (Auto) 0.6, Neut # (Auto) 5.4, Lymph # (Auto) 2.0, [place] # (Auto) 0.6, Eos # (Auto) 0.1, Baso # (Auto) 0.1, Sodium 138, Potassium 3.8, Chloride 107, Carbon Dioxide 27, Anion Gap 7.8, BUN 12 D, Creatinine 0.80, Estimated Creat Clear 119, Estimated GFR 96, Est GFR ( Amer) 117, Glucose 101 H, Calcium 8.3 L, Magnesium 2.2, Total Bilirubin 0.6, AST 24, ALT 28, Alkaline Phosphatase 60, Total Protein 6.4, Albumin 3.8, Globulin 2.6, Albumin/Globulin Ratio 1.5 I & O for Last 24 hours: Intake & Output 04/24/24 04/25/24 04/26/24 04/27/24 23:59 23:59 23:59 23:59 Intake Total 1160 / 1160 183 / 2 642 / 642 Output Total 900 / 900 1 / 0 / 0 Balance 260 / 260 1829 / 2051 642 / 642 Weight 119.476 kg 118.977 kg 117.798 kg Constitutional Constitutional: no acute distress *Routine HEENT Exam Head: Present normocephalic Eye: Present EOMI ENT: Present mucous membranes moist *Routine Respiratory Exam Respiratory: Present CTA bilaterally and normal respiratory effort *Routine Cardiovascular Exam Cardiovascular: Present RRR, Normal S1 and Normal S2 *Routine Abdominal Exam Abdominal: Present soft and normoactive bowel sounds *Routine Skin Exam Skin: Present intact and dry Results Data Completed and Pending Labs on day of discharge: Labs from last 24 hours 04/27/24 05:30 WBC 8.2 D RBC 4.74 Hgb 14.7 Hct 46.3 MCV 97.7 H MCH 30.9 MCHC 31.7 L RDW 13.8 Plt Count 184 MPV 9.1 Neut % (Auto) 66.5 Lymph % (Auto) 24.7 [place] % (Auto) 6.7 Eos % (Auto) 1.5 Baso % (Auto) 0.6 Neut # (Auto) 5.4 Lymph # (Auto) 2.0 [place] # (Auto) 0.6 Eos # (Aut
--- NOTE | 2024-04-29 15:19 | CARE MANAGER ---
Attempted to contact patient x2 related to hospital discharge. No VM option. ROWAN Garcia
== END 2024-04-27 10:38 | disposition home or self-care (01) | DRG 322 ==
LOC: ER 05:05 → CATHLAB 05:07 → 2ND 05:38
PROVIDERS: Internal Medicine; Nurse Practitioner Family; Admitting Provider Internal Medicine Adolescent Medicine; Emergency Provider Emergency Medicine; PCP Nurse Practitioner; Visit Provider Internal Medicine Adolescent Medicine
PROC: 027135Z Dilation of Coronary Artery, Two Arteries with Two Drug-eluting Intraluminal Devices, Percutaneous Approach (ICD-10-PCS; principal; 2024-04-25 04:50)
DX: I21.3 ST elevation (STEMI) myocardial infarction of unspecified site (principal); F17.210 Nicotine dependence, cigarettes, uncomplicated; Z79.899 Other long term (current) drug therapy; I10 Essential (primary) hypertension; I25.10 Atherosclerotic heart disease of native coronary artery without angina pectoris; J44.9 Chronic obstructive pulmonary disease, unspecified; E78.5 Hyperlipidemia, unspecified
CPT/HCPCS: 36415; 71045; 80048; 80053; 80061; 82306; 83036; 83735; 84484; 85025; 85347; 92928; 92941; 93005; 93306; 93458; 99152; 99153; 99285; C1725; C1760; C1769; C1874; C9600; C9606; J1200; J1644; J2250; J3010; Q9957; Q9967

== ENCOUNTER 2024-05-05 10:00 | Outpatient (CLI) | payer BC, SELFPAY ==
[2024-05-05 19:26] LABS: Albumin Level 3.9 g/dl (3.5-5.0); Chloride 108 mmol/L (98-107); Sodium 138 mmol/L (136-145)
[2024-05-05 19:27] LABS: Potassium 4.2 mmoL/L (3.5-5.1)
[2024-05-05 19:29] LABS: Alanine Aminotransferase 38 U/L (12-78); Albumin/Globulin Ratio 1.5 (1.1-1.8); Anion Gap 11.2 mEq/L (5-15); Aspartate Amino Transferase 33 U/L (17-59); Blood Urea Nitrogen 19 mg/dl (9-20); Carbon Dioxide 23 mmol/L (22.0-30.0); Estimated Glomerular Filt Rate 112 ml/min (>60); GFR (African American) 136 ML/MIN (>60); Globulin 2.6 g/dL (1.3-3.2); Total Protein,Serum 6.5 g/dl (6.3-8.2)
[2024-05-05 19:30] LABS: Alkaline Phosphatase 80 U/L (38-126); Bilirubin,Total 0.4 mg/dl (0.2-1.3); Calcium 8.6 mg/dl (8.4-10.2); Glucose 91 mg/dl (74-100)
[2024-05-05 19:53] LABS: Thyroid Stimulating Hormone 3.96 uIU/mL (0.465-4.68)
[2024-05-05 20:59] LABS: Prostate Specific Ag Screen 0.1 ng/ml (0.0-4.0)
[2024-05-05 21:15] LABS: Vitamin B12 307 pg/mL (239-931)
== END 2024-05-05 23:59 | disposition home or self-care (01) ==
LOC: LAB.DROPOF 05-06 10:01
PROVIDERS: PCP Nurse Practitioner; Visit Provider Nurse Practitioner
DX: I10 Essential (primary) hypertension (principal); E78.5 Hyperlipidemia, unspecified; N40.0 Benign prostatic hyperplasia without lower urinary tract symptoms; I25.10 Atherosclerotic heart disease of native coronary artery without angina pectoris; Z72.0 Tobacco use
CPT/HCPCS: 80053; 82607; 84443; G0103

== ENCOUNTER 2024-06-17 04:24 | Emergency (ER) | payer BC, SELFPAY ==
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
[2024-06-17 04:38] VITALS: BP 148/91; PULSE 74; RESP 18; TEMP 36.8; O2SAT 97; BMI 34.0
[2024-06-17 05:00] VITALS: BP 125/82; PULSE 69; O2SAT 96
--- NOTE | 2024-06-17 05:06 | PC.NURSE ---
rounded on patient, no needs at this time
--- NOTE | 2024-06-17 05:39 | ED_ITS ---
Discharge Plan Disposition Patient Disposition: Home, Self-Care Condition: Good Prescriptions Prescriptions: No Action cefdinir 300 mg capsule 300 mg PO BID Qty: 20 0RF chlorhexidine gluconate 0.12 % mouthwash 15 ml buccal BID Qty: 1893 1RF hydrochlorothiazide 25 mg tablet 25 mg PO DAILY metoprolol succinate 50 mg tablet extended release 24 hr 50 mg PO DAILY meloxicam 15 mg tablet 15 mg PO DAILY clopidogrel 75 mg tablet 75 mg PO DAILY losartan 100 mg tablet 100 mg PO DAILY finasteride 5 mg tablet 5 mg PO DAILY doxazosin 2 mg tablet 1 mg PO DAILY rosuvastatin 20 mg tablet 20 mg PO DAILY aspirin 81 mg Tablet,Delayed Release (Dr/Ec) 81 mg PO DAILY Qty: 90 0RF Referrals Follow up/Referrals: Maggie Murphy APRN [Primary Care Provider] - See instructions Activity Restrictions/Add. Instructions Additional Instructions/Restrictions: You were evaluated in the ER and are appropriate for discharge at this time. Continue taking home medications as prescribed. Do not take ibuprofen, Aleve, or other NSAIDs. If you need anything for pain, take Tylenol. Rest and elevate the leg. Massage the area gently to help break up the clot. Wear compressive stockings to help with hematoma improvement. make an appointment with your primary care doctor for reevaluation tomorrow. Return to the ER with new, worsening, or otherwise concerning symptoms Clinical Impressions Clinical Impression: Hematoma of left lower leg Stand Alone Forms Stand Alone Forms: Work/School Release Print Language Print Language: Japanese Discharge ED Provider: Genesis Ocampo General Adult HPI General Chief complaint: Extremity Injury, Lower Stated complaint: L leg injury Time Seen by Provider: 06/17/24 04:33 Mode of Arrival: Wheelchair Source of Information: Patient Limitations: No Limitations Description of Symptoms (Recalled from ER Triage Doc. by RN): Pt reports to ED with cc of pain to LLE. Pt states at approx 1800 last night he was working on his tractor when the equipment struck him in the left yin. Pt states he went home and applied ice and took aleve and went to bed. Pt states he woke up at approx 0230 in extreme pain that he describes as throbbing. Pt states he can't bear weight on his left leg without extreme pain. Pt has swelling to the LLE and a hematoma. Pt states he is taking aspirin daily. P History of Present Illness HPI narrative: 68-year-old male with a history of MD in April on aspirin and Plavix presents to the ER with left yin pain. Patient states around 6 PM last night he was working on his tractor when the drawl bar slipped from under pressure and struck him in the left yin. He states he went home and applied ice and took Aleve and then went to bed. He woke up early this morning with significant pain and throbbing in the left yin. He states he has significant pain with any bearing of weight but he did drive himself to the ER and ambulated independently to the ER. Patient reports no other injuries, he states he has full feeling in the leg as well as distal to the injury. He has no numbness, tingling, or weakness. Related Data Home Medications ?Medication ?Instructions ?Recorded ?Confirmed clopidogrel 75 mg tablet 75 mg PO DAILY 04/25/24 05/05/24 doxazosin 2 mg tablet 1 mg PO DAILY 04/25/24 05/05/24 finasteride 5 mg tablet 5 mg PO DAILY 04/25/24 05/05/24 hydrochlorothiazide 25 mg tablet 25 mg PO DAILY 04/25/24 05/05/24 losartan 100 mg tablet 100 mg PO DAILY 04/25/24 05/05/24 meloxicam 15 mg tablet 15 mg PO DAILY 04/25/24 05/05/24 metoprolol succinate 50 mg 50 mg PO DAILY 04/25/24 05/05/24 tablet,extended release 24 hr rosuvastatin 20 mg tablet 20 mg PO DAILY 04/25/24 05/05/24 Previous Rx's ?Medication ?Instructions ?Recorded aspirin 81 mg tablet,delayed 81 mg PO DAILY #90 tabs 04/27/24 release cefdinir 300 mg capsule 300 mg PO BID #20 caps 04/28/24 chlorhexidine gluconate 0.12 % 15 ml buccal BID #1,893 mL 04/28/24 mouthwash Allergies Allergy/AdvReac Type Severity Reaction Status Date / Time No Known Allergies Allergy Verified 05/05/24 08:13 [facility] Disclaimer: The information contained in this section may have been updated after the patient was seen, as this information can be updated by other users. Medical History Heart attack Current smoker Coronary artery disease Tenosynovitis of right hand Radicular pain of right upper extremity Upper back pain on right side Varicosities of leg encouraged support hose BPH (benign prostatic hyperplasia) Osteoarthritis ASCVD (arteriosclerotic cardiovascular disease) COPD (chronic obstructive pulmonary disease) Hyperlipidemia Essential hypertension Surgical History Stented coronary artery History of bilateral cataract extraction (~2019) History of heart artery stent (~2006) History of colonoscopy (~2015) History of transurethral resection of prostate Social History Smoking Status: Current every day smoker tobacco type: cigarettes packs per day: 1 alcohol intake: never current occupational status: employed Travel in the last 8 weeks: None Other Medical History Have you received the Flu Vaccine for this season: No Have you received the Pneumonia Vaccine: No ROS Obtained: Yes All systems reviewed & no additional complaints except as documented Positive ROS per HPI Physical Exam General General appearance: alert and in no apparent distress Head Head exam: atraumatic and normocephalic Eye Eye exam: Present PERRL and EOMI ENT ENT exam: Present mucous membranes moist Neck Neck exam: Present normal inspection and full ROM Chest Chest inspection: Present symmetric chest wall rise Respiratory Respiratory exam: Present normal lung sounds bilaterally; Absent respiratory distress, wheezes or stridor Cardiovascular Cardiovascular exam: Present regular rate and normal rhythm Abdominal Exam Abdominal exam: Present soft; Absent distention or tenderness Extremities Exam Extremities exam: Present full ROM, tenderness (Left yin just medial to the tibia with obvious bruising, hematoma) and other (2+ pulses in all extremities including DP and PT, neurovascularly intact distal to area of swelling, pain, bruising); Absent edema (No pitting edema) or calf tenderness (No calf swelling) Neurological Exam Neurological exam: Present alert and oriented X3; Absent motor sensory deficit Psychiatric Psychiatric exam: Present normal affect and normal mood Skin Skin exam: Present warm and dry Medical Decision Making Medical Records Medical records reviewed: Yes I reviewed the patient's medical records. Screening: Per USPSTF and CDC recommendations, given the prevalence of disease in our region, it is our hospital?s policy to screen for HIV and viral Hepatitis for all patients aged 18 and over and those with ongoing risk factors. MR Comment: Last note from cardiology was 04/27/2024 after patient had been treated with STEMI. He had 1 stent placed in the LAD. He was to continue losartan, HCTZ, and metoprolol as well as dual antiplatelet therapy. He was going to follow-up outpatient with Dr. 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 Josue Inquiry Pt receiving controlled substance: No Vital Signs: 06/17/24 04:38 Temperature 98.2 F Temperature Source Oral Pulse Rate [Left Radial] 74 Respiratory Rate 18 Blood Pressure [Right Arm] 148/91 H Blood Pressure Mean [Right Arm] 110 Blood Pressure Source [Right Arm] Automatic Cuff 02 Sat by Pulse Oximetry 97 Oxygen Delivery Method Room Air Orders (Tests/Meds): ED MEDICATIONS Discontinued Medications Generic Name Dose Route Start Last Admin Trade Name Freq PRN Reason Stop Dose Admin Acetaminophen 1,000 mg 06/17/24 05:44 06/17/24 05:52 Acetaminophen 500mg Tab PO 06/17/24 05:45 1,000 mg ONCE ONE Administration ORDERS Category Date Time Status POCUS Point of Care (ER Only) Stat Exams 06/17/24 04:37 Completed XR tibia fibula LT 2V Stat Exams 06/17/24 04:37 Completed Medical Decision Narrative: In summary, this 68-year-old male with history of CAD, LAD stent on dual antiplatelet therapy presents to the emergency department today with left yin pain, swelling, bruising. On initial evaluation patient is hemodynamically stable, afebrile, tenderness to palpation with pain, swelling, bruising to the left yin as described in physical exam, hematoma is nonpulsatile, neurovascularly intact distally, no crepitus or deformity appreciated. Differential diagnosis includes but is not limited to fracture, hematoma, I considered possibility of DVT though I have lower suspicion for this, also considered bone bruise. Based on these concerns, I ordered x-ray of the left tib/fib and perform bvbrm-ca-ence ultrasound. Patient received Tylenol. Ultrasound reassuring against DVT, hematoma is present without obvious active bleeding. Patient has no findings of compartment syndrome, no pain with passive movement, paresthesias, pallor, or pulselessness. The area of the hematoma is also very low risk for compartment syndrome occurring. X-ray personally turbid it does not demonstrate acute osseous injury, see radiology read for final interpretation. I discussed this case with Dr. Meneses since patient has a fairly large hematoma, I considered whether or not he should continue his dual antiplatelet therapy. Since he recently had a stent placed less than 2 months ago, I discussed this with Dr. Meneses and he believes the risks of removing the dual antiplatelet therapy at this time outweigh the benefits given the low risk area of the hematoma. He stated patient should continue his medications as previously prescribed. Slightly compressive dressing with Joe wrap was applied over the hematoma. This was checked by me approximately 20 minutes later and patient still had good pulses distally with full range of motion,, good perfusion, no findings of the dressing being too tight. Patient was given instructions on continued symptomatic monitoring and management including being encouraged to wear compression socks, follow-up instructions, and strict return precautions for the ER. He indicated understanding and the patient was discharged in stable condition. Procedures Miscellaneous Procedure Procedure Performed: Limited DVT ultrasound Indication: Limited compression ultrasonography of the left lower extremity was performed to evaluate for non-compressibility of the deep veins in the patient. The ultrasound was performed with the following indications, as noted in the H&P: Left leg swelling and pain Identified structures: Left [common femoral vein, femoral vein, popliteal vein were examined.] Findings: Lower Extremity: Left CFV: Good compressibility Left FV good compressibility Left Popliteal vein: Good compressibility Impression: Normal left lower extremity DVT ultrasound Images were saved to permanent archive The study was technically adequate CPT: 37866-88-JH This study was performed by me, and I personally interpreted all images/videos. Based on my clinical judgement, these images were adequate and did not necessitate further imaging. Limited Soft tissue ultrasound Indication: Left lower extremity swelling, pain Identified structures: Left anterior medial yin Location: Left anterior medial yin Findings: Fluid collection that is not loculated, no flow, clinically is hematoma, fluid c ollection is approximately 4.5 cm long x 1.5 cm in depth There is 1 blood vessel that appears to cross through the hematoma as it courses from deep to the hematoma through it, and too superficial to the hematoma, however I do not appreciate flow from this vessel into the hematoma I do not appreciate any cobblestoning that would be concerning for cellulitis, I do not appreciate any free air Impression: Fluid collection clinically likely hematoma without any findings of flow or active bleeding within hematoma Images were saved to the permanent archive. The study was technically adequate. Soft tissue CPT codes Lower extremity: 41901-37 This study was performed by me, and I personally interpreted all images/videos. Based on my clinical judgment, these images were adequate and did not ne cessitate further imaging. Critical Care Critical Care Time Critical Care Time: No
[2024-06-17] MEDS: ACETAMINOPHEN 500MG TAB 1000 MG PO (05:52)
[2024-06-17 05:54] VITALS: BP 134/88; PULSE 65; O2SAT 95
[2024-06-17 06:00] VITALS: BP 135/108; PULSE 65; O2SAT 94
[2024-06-17 06:31] VITALS: BP 128/83; PULSE 65; O2SAT 96
[2024-06-17 06:53] VITALS: BP 128/83; PULSE 64; RESP 18; TEMP 36.8; O2SAT 96
== END 2024-06-17 06:58 | disposition home or self-care (01) ==
PROVIDERS: Emergency Provider Emergency Medicine; PCP Nurse Practitioner
DX: S80.12XA Contusion of left lower leg, initial encounter (principal); M79.662 Pain in left lower leg; W22.8XXA Striking against or struck by other objects, initial encounter; Y93.89 Activity, other specified; Y92.9 Unspecified place or not applicable
CPT/HCPCS: 73590; 99284

== ENCOUNTER 2024-11-13 08:53 | Outpatient (CLI) | payer BC, SELFPAY ==
--- NOTE | 2024-11-13 08:59 | XR_ITS ---
PROCEDURE INFORMATION: Exam: XR Thoracic Spine Exam date and time: 11/13/2024 8:56 AM Age: 69 years old Clinical indication: Pain in thoracic spine; Additional info: Posterior rib cage pain, thoracic spine pain TECHNIQUE: Imaging protocol: Radiologic exam of the thoracic spine. Views: 3 views. COMPARISON: CT THORACIC SPINE WO CON 06/20/2019 9:28 AM FINDINGS: Bones/joints: Slight scoliosis midthoracic spine convex to the patient's left. Mild degenerative changes mid-lower thoracic spine with mild disc space narrowing and endplate sclerosis. There are no compression fractures or spondylolisthesis detected. Pedicles are intact. Soft tissues: Unremarkable. IMPRESSION: Mild degenerative changes mid-lower thoracic spine. No acute bony abnormalities.
--- NOTE | 2024-11-13 08:59 | XR_ITS ---
PROCEDURE INFORMATION: Exam: XR Chest Exam date and time: 11/13/2024 8:51 AM Age: 69 years old Clinical indication: Pain; On breathing; Patient unable to stand straight up, listed sideways slightly- unable to get in one shot; Additional info: Posterior rib cage pain, thoracic spine pain TECHNIQUE: Imaging protocol: Radiologic exam of the chest. Views: 2 views. COMPARISON: CR XR CHEST PORTABLE 04/25/2024 4:50 AM FINDINGS: Lungs: Unremarkable. No consolidation. Pleural spaces: Unremarkable. No pleural effusion. No pneumothorax. Heart/Mediastinum: Unremarkable. No cardiomegaly. Bones/joints: No acute bony abnormalities detected. IMPRESSION: Negative chest. No active disease.
== END 2024-11-13 23:59 | disposition home or self-care (01) ==
LOC: RAD 08:55
PROVIDERS: PCP Nurse Practitioner; Visit Provider Nurse Practitioner
DX: R07.81 Pleurodynia (principal); M54.6 Pain in thoracic spine
CPT/HCPCS: 71046; 72072

== ENCOUNTER 2025-02-25 07:04 | Outpatient (CLI) | payer BC, SELFPAY ==
--- NOTE | 2025-02-25 07:00 | CT_ITS ---
FINAL REPORT TECHNIQUE: Thin section axial images were obtained through the lungs using a low-dose technique per lung cancer screening protocol. Reconstruction images were obtained using the axial data. Exam was performed using dose reduction technique. This study was performed with techniques to keep radiation doses as low as reasonably achievable (ALARA). Individualized dose reduction techniques using automated exposure control or adjustment of mA and/or kV according to the patient's size were employed. CLINICAL HISTORY: lung cancer screening .5 ppd x 45 years COMPARISON: None FINDINGS: CTDLvol: 2.90 DLP: 115.68 Current smoker 23 pack year history Lungs: No acute pulmonary abnormality. No suspicious nodules. There is evidence of prior granulomatous disease. Lymph nodes: No thoracic lymphadenopathy. Mediastinum: Heart size is normal. Prominent coronary artery calcifications are present. Pleura/pericardium: No pleural or pericardial effusion. Other: No acute abnormality in the upper abdomen. IMPRESSION: No suspicious pulmonary nodule or mass. Lung RADS: 1S, the S designation for prominent coronary artery calcifications Recommendation: 12-month follow-up LDCT Reviewed, Interpreted and Dictated by Candi Becerra MD Transcribed by Alberta Manzano Authenticated and [facility]
--- OUTSIDE RECORDS SUMMARY | 2025-02-25 07:08 | XMS_ITS | Encounter Summary ---
Author Organization [employer] Address [address] [place] [address] Care Team Providers Care Roll Changer Name Role Phone Provider Not In System, McT Primary Care Provide r Unavailable Encounter Details Date Type Department Care Team (Late st Contact Info) Description 10/09/2020 Transcribed Document [facility] [place] [facility] [place] [address] ProviderJavier MD [address] [place] [id number] Social History Tobacco Use Types Packs/Day Years Used Date Smoking Tobacco: Never Assessed Sex and Gender Information Value Date Recorded Sex Assigned at Not on file Legal Sex Male 12:31 PM CDT Gender Identity Not on file Sexual Orientation Not on file documented as of this encounter Miscellaneous Notes * Cerner Conversion Note - Javier ProviderMD - 10/09/2020 1:28 PM SPECIAL PROJECTS MANAGER SIMI Triage ED Entered On: 10/09/2020 8:32 EST Performed On: 10/09/2020 8:28 EST by Vera Pike Triage Assessment Triage Date/Time : 10/09/2020 8:28 EST Vera Pike - 10/09/2020 8:28 EST DCP GENERIC CODE Tracking Acuity : 4 - Non-urgent [facility] Tracking Group : Vera Ledesma 10/09/2020 8:28 EST ED Visit Reason : Facial Complaint Primary Care Provider : aneta Accompanied By : No One Arrival Mode : Private vehicle Chief Complaint : pt. presents to er with c/o chin pain after fall on the . pt. was seen in the er at that time for laceration above right eye. pt. reports chin started hurting on friday and noticed swelling yesterday mnore on the right side Vera Pike - 10/09/2020 8:28 EST Health History ED Grid Alcohol Use : No Caffeine Use : No Substance Abuse : No Tobacco Use : No Asthma/COPD : No Cancer : No CVA/TIA : No Mental Illness : No Dementia : No Diabetes : No General Cardiac : Yes, cardiac stent GI Medical History : No Taker Down Hx : No Heart Attack : No Heart Failure : No High Blood Pressure : Yes High Cholesterol : Yes Liver Disease : No Renal : No Seizure : No Surgical History : Yes, cardiac stent right knee, left shoulder, cataracts Thyroid Disease : No AIDS/HIV : No MRSA : No Tuberculosis : No VRE : No Other Medical History : No Pathway Planning : No Vera Pike 10/09/2020 8:28 EST Temp : 98.9 Deg F(Converted to: 37.2 Deg C) Temp Route : Oral/Mouth Systolic Blood Pressure : 122 mmHg Diastolic Blood Pressure : 77 mmHg Pulse Rate : 82 bpm Respiratory Rate : 18 Breaths/Min Oxygen Saturation : 98 % Pain Symptoms : Yes Height/Weight Med Rec : Open Medication Profile, Med Rec : Open Allergy Profile, Med Rec : Open Workman's Compensation : No Preferred Communication Mode : Verbal Languages : Georgian Child/Parent Domestic Concerns : None Threats of Suicide : No Vera Pike 10/09/2020 8:28 EST Height and Weight Height Source : Stated Height Entry Format : Montgomery Height, Inches : 74 Inch(Converted to: 6 ft 2 Inch, 187.96 cm) Clinical Height : 187.96 cm Weight Source : Stated Type of Weight Measurement Est : Montgomery Weight, est lb : 247 lb Estimated Clinical Dosing Weight : 112.27 kg Coleman Body Weight : 81 kg Body Surface Area Estimated : 2.42 m2 Body Mass Index Estimated : 31.78 kg/m2 Vera Pike 10/09/2020 8:28 EST Medication List ED Medications Reviewed : No home medications Source of Information : Patient Vera Pike 10/09/2020 8:28 EST Medication List (As Of: 10/09/2020 08:32:47 EST) Home Meds varenicline : varenicline ; Status: Documented ; Ordered As Mnemonic: Chantix 0.5 mg oral tablet ; Simple Display Line: 0 Refill(s) ; Catalog Code: varenicline ; Order Dt/Tm: 10/05/2020 08:51:41 EST losartan-hydrochlorothiazide : losartan-hydrochlorothiazide ; Status: Documented ; Ordered As Mnemonic: hydroCHLOROthiazide-losartan 12.5 mg-100 mg oral tablet ; Simple Display Line: 1 Tab, Oral, Daily, 0 Refill(s) ; Catalog Code: losartan-hydrochlorothiazide ; Order Dt/Tm: 10/05/2020 08:49:58 EST meloxicam : meloxicam ; Status: Documented ; Ordered As Mnemonic: meloxicam 15 mg oral tablet ; Simple Display Line: 15 mg, 1 Tab, Oral, Daily, 30 Tab, 0 Refill(s) ; Catalog Code: meloxicam ; Order Dt/Tm: 10/05/2020 08:50:11 EST doxazosin : doxazosin ; Status: Documented ; Ordered As Mnemonic: doxazosin 2 mg oral tablet ; Simple Display Line: 2 mg, 1 Tab, Oral, Daily, 30 Tab, 0 Refill(s) ; Catalog Code: doxazosin ; Order Dt/Tm: 10/05/2020 08:49:21 EST rosuvastatin : rosuvastatin ; Status: Documented ; Ordered As Mnemonic: rosuvastatin 20 mg oral capsule ; Simple Display Line: 20 mg, 1 Cap, Oral, Daily, 30 Cap, 0 Refill(s) ; Catalog Code: rosuvastatin ; Order Dt/Tm: 10/05/2020 08:50:47 EST amLODIPine : amLODIPine ; Status: Documented ; Ordered As Mnemonic: amLODIPine 5 mg oral tablet ; Simple Display Line: 5 mg, 1 Tab, Oral, Daily, 30 Tab, 0 Refill(s) ; Catalog Code: amLODIPine ; Order Dt/Tm: 10/05/2020 08:51:23 EST finasteride : finasteride ; Status: Documented ; Ordered As Mnemonic: finasteride 5 mg oral tablet ; Simple Display Line: 5 mg, 1 Tab, Oral, Daily, 30 Tab, 0 Refill(s) ; Catalog Code: finasteride ; Order Dt/Tm: 10/05/2020 08:50:34 EST metoprolol : metoprolol ; Status: Documented ; Ordered As Mnemonic: Metoprolol Tartrate 50 mg oral tablet ; Simple Display Line: 50 mg, 1 Tab, Oral, BID, 180 Tab, 0 Refill(s) ; Catalog Code: metoprolol ; Order Dt/Tm: 10/05/2020 08:49:40 EST clopidogrel : clopidogrel ; Status: Documented ; Ordered As Mnemonic: Plavix 75 mg oral tablet ; Simple Display Line: 75 mg, 1 Tab, Oral, Daily, 30 Tab, 0 Refill(s) ; Catalog Code: clopidogrel ; Order Dt/Tm: 10/05/2020 08:49:31 EST aspirin : aspirin ; Status: Documented ; Ordered As Mnemonic: Aspirin Low Strength 81 mg oral delayed release tablet ; Simple Display Line: 81 mg, 1 Tab, Oral, Daily, 90 Tab, 0 Refill(s) ; Catalog Code: aspirin ; Order Dt/Tm: 10/05/2020 08:50:57 EST Allergy Profile (As Of: 10/09/2020 08:32:47 EST) Allergies (Active) No Known Allergies Estimated Onset Date: Unspecified ; Created By: Vera Pike; Reaction Status: Active ; Category: Drug ; Substance: No Known Allergies ; Type: Allergy ; Updated By: Vera Pike; Reviewed Date: 10/05/2020 8:48 EST Pain Pain Assessment Grid Location : Other: chin Intensity : 9 Vera Pike - 10/09/2020 8:28 EST documented in this encounter Plan of Treatment Not on file documented as of this encounter Visit Diagnoses Not on filedocumented in this encounter Care Teams Roll Changer Relationship Specialty Start Date End Date Provider Not In System, Tavia PCP - General 09/16/22 documented as of this encounter
--- OUTSIDE RECORDS SUMMARY | 2025-02-25 07:08 | XMS_ITS | Encounter Summary ---
Author Organization [employer] Address [address] [place] [address] Care Team Providers Care Associate Producer Name Role Phone Provider Not In System, McT Primary Care Provide r Unavailable Encounter Details Date Type Department Care Team (Late st Contact Info) Description 10/09/2020 Transcribed Document [facility] [place] Family Medicine Formerly [facility] [place] [address] ProviderJavier MD [address] [place] [id number] Social History Tobacco Use Types Packs/Day Years Used Date Smoking Tobacco: Never Assessed Sex and Gender Information Value Date Recorded Sex Assigned at Not on file Legal Sex Male 12:31 PM CDT Gender Identity Not on file Sexual Orientation Not on file documented as of this encounter Miscellaneous Notes * Cerner Conversion Note - Javier ProviderMD - 10/09/2020 3:14 PM APARTMENT MAINTENANCE [facility] ADDRESS [place], [place] [phone] Name:Iftikhar Perrin Visit Date:10/09/2020 08:19:00 Emergency Department Care Providers: Physician: STEPHEN CRUZ MD Physician: Our doctors and staff appreciate your choice of [facility] for your emergency medical care. Read these instructions carefully. Please call us if you have any questions about your medical problem. [facility] Emergency Department [phone] [facility] Emergency Department [phone] [facility] Emergency Department [phone] Patient Education Materials Iftikhar Perrin has been given the following patient education materials: Orthopedics Jaw Contusion A jaw contusion is a deep bruise of the jaw. Contusions are the result of an injury to muscles and tissue under the skin. The injury causes bleeding under the skin. The skin over the contusion may turn blue, purple, or yellow. Minor injuries will cause a painless contusion, but more severe contusions may stay painful and swollen for a few weeks. What are the causes? This condition is usually caused by direct force or a hard hit to the jaw. What are the signs or symptoms? Symptoms of this condition include: ??? Jaw pain. ??? Jaw swelling. ??? Jaw bruising, redness, or discoloration. ??? Jaw tenderness or soreness. How is this diagnosed? This condition may be diagnosed based on: ??? Your medical history. ??? A physical exam. ??? Imaging tests, such as: ? X-rays. ? CT scan. ? MRI. How is this treated? This condition may be treated by: ??? Applying cold compresses to the injured area. ??? Eating a soft-food diet. ??? Taking ecby-kdl-qblozam medicines for pain. Follow these instructions at home: Eating and drinking ??? Eat soft foods as told by your health care provider. Soft foods include baby food, gelatin, oatmeal, ice cream, applesauce, bananas, eggs, pasta, cottage cheese, soups, and yogurt. ??? Cut food into smaller pieces. This makes it easier to chew. ??? Avoid chewing gum or ice. Managing pain, stiffness, and swelling ??? If directed, put ice on the injured area: ? Put ice in a plastic bag. ? Place a towel between your skin and the bag. ? Leave the ice on for 20 minutes, 2?3 times a day. General instructions ??? Take ayye-pgw-eogrtzz and prescription medicines only as told by your health care provider. ??? Avoid opening your mouth widely. This includes opening your mouth to eat large pieces of food or to yawn, scream, yell, or sing. ??? Keep all follow-up visits as told by your health care provider. This is important. Contact a health care provider if: ??? Your pain is not controlled with medicine. ??? Your symptoms do not improve with treatment or they get worse. ??? You have new symptoms. ??? You have any new cracking or clicking in your jaw. ??? You have trouble eating or you cannot eat. Summary ??? A jaw contusion is a deep bruise of the jaw. ??? This condition is usually caused by direct force or a hard hit to the jaw. ??? Symptoms include jaw pain, swelling, bruising, or redness. ??? A jaw contusion may be treated by applying ice, eating soft foods, and taking wgwn-eob-vltoedo pain medicines. This information is not intended to replace advice given to you by your health care provider. Make sure you discuss any questions you have with your health care provider. Document Released: 11/14/2004 Document Revised: 03/23/2019 Document Reviewed: 03/23/2019 CoSchedule Patient Education ? 2020 [email or web address]. FOLLOW UP CARE Most conditions that require emergency care require follow up. This can be with ?? Your own doctor ?? The doctor listed on this form. You will need to call for an appointment. Tell the doctor or clinic that we referred you. ?? If you do not have a regular physician, please choose one from the list given to you upon discharge from the Emergency Department. PRESCRIPTIONS ?? Fill all the prescriptions. Take them as directed. ?? If you have been given an antibiotic, be sure to take the medication for as many days and times a day listed on the instructions. ?? STOP your medicine and call the Emergency Department if you have drug allergy symptoms, if you are vomiting and cannot keep the medicine down. Call the pharmacist if you have other side effects, ?? Pain medication can make you drowsy. Do not drive or operate machinery for at least 6 hours after leaving the Emergency Department. ?? We DO NOT provide telephone refill for any prescriptions. TESTS PERFORMED TODAY ?? X-ray results are preliminary and will be read over the next day by a Radiologist. If the Doctors find any discrepancy between the preliminary reading and the final reading we will notify you. ?? If we advise you to take your x-rays to your follow up physician, please call the x-ray department to pick them up o [facility] # [phone] [facility] # [phone] o [facility] # [phone] ?? If you had cultures done and the results require a change in your treatment, we will notify you. Culture results are usually final in 2 days after your visit. IF YOU SMOKE ?? Cigarette smoking threatens your health and the health of non-smokers. Smoking is the most preventable cause of illness and in the [place]. ?? Smoking is a hard habit to quit, but you can do it. Call any of these numbers for a resource to help you quit. o National Network of Tobacco Cessation AFouplrge7-939-FDSH-NOW o [place] [employer] o [place] [employer] 5-624162-3464 o [employer] [phone] FINANCIAL INFORMATION ?? [facility] provides financial counseling to anyone who requests our services. ?? Emergency Physicians are independently contracted to provide your care. You will receive a bill for the care provided to you by the Physician and/or the Physician Balancer. This will be a separate bill from your hospital bill. ?? Radiologists are independently contracted. You will receive a bill for any radiology service you receive. This will be a separate bill from your hospital bill. YOU ARE THE MOST IMPORTANT FACTOR IN YOUR RECOVERY. Follow these instructions carefully. Take your medicine as prescribed. Most importantly, follow up with a doctor. If you have problems that we have not discussed, call or visit your doctor right away. If you cannot reach your doctor, return to the Emergency Department. Patient Visit Summary Iftikhar Perrin has been given the following list of patient education materials, prescriptions and follow-up instructions: Patient Education Materials: Orthopedics Jaw Contusion Follow-Up Instructions: Follow Up With: Where: When: Follow up with primary care provider Within 2-4 days Comments: I, Iftikhar Perrin, have received a copy of these discharge instructions and acknowledge understanding of these instructions. . I understand that my condition may require more care and will arrange for further treatment as recommended Patient Signature / or Patient General Intern Provider Signature Date Electronically signed by Interface, [facility] Conversion Digital Sales Planner Cerner at 12/10/2022 12:11 PM CDT documented in this encounter Plan of Treatment Not on file documented as of this encounter Visit Diagnoses Not on filedocumented in this encounter Care Teams Associate Producer Relationship Specialty Start Date End Date Provider Not In System, McT PCP - General 09/16/22 documented as of this encounter
--- OUTSIDE RECORDS SUMMARY | 2025-02-25 07:08 | XMS_ITS | Encounter Summary ---
Author Organization [employer] Address [address] [place] [address] Care Team Providers Care Chainstitch Tunnel Elastic Operator Name Role Phone Provider Not In System, McT Primary Care Provide r Unavailable Encounter Details Date Type Department Care Team (Late st Contact Info) Description 10/09/2020 Transcribed Document [facility] [place] [facility] [place] [address] ProviderJavier MD [address] [place] [id number] Social History Tobacco Use Types Packs/Day Years Used Date Smoking Tobacco: Never Assessed Sex and Gender Information Value Date Recorded Sex Assigned at Not on file Legal Sex Male 12:31 PM CDT Gender Identity Not on file Sexual Orientation Not on file documented as of this encounter Miscellaneous Notes * Cerner Conversion Note - Javier ProviderMD - 10/09/2020 3:14 PM DIRECTOR OF MARKETING [facility] ADDRESS [place], [place] [phone] Name:Iftikhar Perrin Visit Date:10/09/2020 08:19:00 Emergency Department Care Providers: Physician: STEPHEN CRUZ MD Physician: Our doctors and staff appreciate your choice of [facility] for your emergency medical care. Read these instructions carefully. Please call us if you have any questions about your medical problem. [facility] Emergency Department [phone] [facility] Emergency Department [phone] [facility] Emergency Department [phone] Patient Education Materials Iftikhar Perrin has been [...] ??? Eating a soft-food diet. ??? Taking qlfo-ces-wirymfb medicines for pain. Follow these instructions at [...] times a day. General instructions ??? Take udai-ivd-cgwhvol and prescription medicines only as told by [...] applying ice, eating soft foods, and taking lwqu-svc-jwtqzpm pain medicines. This information is not intended to replace advice given to you by your health care provider. Make sure you discuss any questions you have with your health care provider. Document Released: 11/14/2004 Document Revised: 03/23/2019 Document Reviewed: 03/23/2019 [email or web address] Patient Education ? 2020 [employer]. FOLLOW UP CARE Most conditions that require [...] x-ray department to pick them up o [facility] # [phone] o [facility] # [phone] o [facility] # [phone] ?? If you had cultures done and [...] quit. o National Network of Tobacco Cessation EVrwndaxs4-835-MAHG-NOW o [employer] o [employer] 4-872733-4739 o [employer] [phone] FINANCIAL INFORMATION ?? [facility] provides financial counseling to anyone who requests our services. ?? Emergency Physicians are independently contracted to provide your care. You will receive a bill for the care provided to you by the Physician and/or the Physician Re Recording Mixer. This will be a separate bill from [...] as recommended Patient Signature / or Patient Manual Machinist Provider Signature Date Date/Time 10/09/2020 10:14 [place] [facility] Home Medications Name Iftikhar Perrin Allergy Info: No Known Allergies Allergy Comment: HOME MEDICATIONS Medication Dose Route Frequency Reason For Taking Next Dose amLODIPine 5 mg oral tablet Aspirin Low Strength 81 mg oral delayed release tablet Chantix 0.5 mg oral tablet doxazosin 2 mg oral tablet finasteride 5 mg oral tablet hydroCHLOROthiazide-losartan 12.5 mg-100 mg oral tablet meloxicam 15 mg oral tablet Metoprolol Tartrate 50 mg oral tablet Plavix 75 mg oral tablet rosuvastatin 20 mg oral capsule Home Medications Comment: YOU SHOULD NO LONGER TAKE THESE MEDICATIONS Medication Dose Frequency Comment: This med list is based on information you provided. Please take this form with you to check with your doctor(s) the appropriateness and dosages of all your medications. I, Iftikhar Perrin, have received a copy of discharge home medications and acknowledged understanding of these instructions. I hereby certify that I have received the above instructions and that all of my concerns/questions regarding this visit have been adequately answered. Patient Signature Date Witnessed and/or instructed by (signature) Date Electronically signed by Kolton Candelario Conversion Director Of Religious Activities Philippener at 12/10/2022 12:11 PM CDT documented in this encounter Plan of Treatment Not on file documented as of this encounter Visit Diagnoses Not on filedocumented in this encounter Care Teams Chainstitch Tunnel Elastic Operator Relationship Specialty Start Date End Date Provider Not In System, Tavia PCP - General 09/16/22 documented as of this encounter
--- OUTSIDE RECORDS SUMMARY | 2025-02-25 07:08 | XMS_ITS | Encounter Summary ---
Author Organization [employer] Address [address] [place] [address] Care Team Providers Care Anesthesiologist Attending Name Role Phone Provider Not In System, McT Primary Care Provide r Unavailable Encounter Details Date Type Department Care Team (Late st Contact Info) Description 06/22/2020 Transcribed Document [facility] Cardiology [address] [place], [place] [phone] [place] [address] [place] [address] [address] [place] [address] Social History Tobacco Use Types Packs/Day Years Used Date Smoking Tobacco: Never Assessed Sex and Gender Information Value Date Recorded Sex Assigned at Not on file Legal Sex Male 12:31 PM CDT Gender Identity Not on file Sexual Orientation Not on file documented as of this encounter Miscellaneous Notes * Cerner Conversion Note - Antione Eisenberg MD - 06/22/2020 5:13 PM EDT DATE OF SERVICE: This patient underwent a stress test with a myocardial perfusion study, the EKG portion of which was unremarkable. NUCLEAR SCAN: There appears to be within normal myocardial perfusion. Normal wall motion and wall thickening appreciated. Ejection fraction by gated SPECT 67%. IMPRESSION: 1. Normal study. 2. Ejection fraction 67%. /[id number] Antione Eisenberg MD NMF/AQ / NMF / MODL /[id number] documented in this encounter Plan of Treatment Not on file documented as of this encounter Visit Diagnoses Not on filedocumented in this encounter Care Teams Anesthesiologist Attending Relationship Specialty Start Date End Date Provider Not In System, Tavia PCP - General 09/16/22 documented as of this encounter
--- OUTSIDE RECORDS SUMMARY | 2025-02-25 07:08 | XMS_ITS | Clinical Summary ---
Author Organization [employer] Address [address] [place] [address] Care Team Providers Care Caul Fat Puller Name Role Phone Provider Not In System, McT Primary Care Provide r Unavailable Allergies No known active allergies Medications doxazosin (CARDURA) 2 MG tablet Take 0.5 tablets (1 mg total) by mouth daily. 07/18/2022 Active losartan (COZAAR) 100 MG tablet Take 1 tablet (100 mg total) by mouth daily. 07/18/2022 Active meloxicam (MOBIC) 15 MG tablet Take 1 tablet (15 mg total) by mouth daily. 07/18/2022 Active metoprolol succinate (TOPROL-XL) 50 MG 24 hr tablet Take 1 tablet (50 mg total) by mouth daily. 07/18/2022 Active finasteride (PROSCAR) 5 mg tablet Take 1 tablet (5 mg total) by mouth daily. 07/18/2022 Active clopidogreL (PLAVIX) 75 mg tablet Take 1 tablet (75 mg total) by mouth daily. 07/18/2022 Active aspirin 81 MG EC tablet Take 1 tablet (81 mg total) by mouth daily. Active hydroCHLOROthia zide (HYDRODIURIL) 25 MG tablet TAKE 1 TABLET DAILY 90 tablet 3 10/19/2024 Active rosuvastatin (CRESTOR) 40 MG tablet Take 1 tablet (40 mg total) by mouth daily. 90 tablet 3 01/24/2025 Active Active Problems Problem Noted Date Diagnosed Date Arteriosclerotic cardiovascular disease (ASCVD) Benign essential hypertension Mixed hyperlipidemia Stented coronary artery Tobacco abuse disorder COPD (chronic obstructive pulmonary disease) Chronic low back pain BPH (benign prostatic hyperplasia) Encounters Date Type Department Care Team Description 01/19/2025 Refill [facility] Cardiology [address] [place] [address] Marianna Salgado PA-C 12/22/2024 2:45 PM EDT Office Visit [facility] Cardiology [address] [place] [phone] Marianna Salgado PA-C Arteriosclerotic cardiovascular disease (ASCVD) (Primary Dx); Benign essential hypertension; Mixed hyperlipidemia 12/22/2024 Travel from Last 3 Months Family History Medical History Relation Name Comments Heart attack Father Heart disease Father Heart attack Mother Heart disease Mother Relation Name Status Comments Father Mother Social History Tobacco Use Types Packs/Day Years Used Date Smoking Tobacco: Some Days Cigarettes 0.5 31 Smokeless Tobacco: Never Tobacco Cessation:Ready to Q uit: Not Asked; Counseling Given: Not Answered Alcohol Use Standard Drinks/Week Comments Yes 0 (1 standard drink = 0.6 oz pur e alcohol) 2-3 beers daily Housing Stability Vital Sign Answer John e Recorded In the last 12 months, was t here a time when you were not able to pay the mortgage or rent on time? No 09/16/2022 [address] Lived in the Last Year Not on f ile 09/16/2022 In the last 12 months, was t here a time when you did not have a steady place to sleep or slept in a half-way (including now)? No 09/16/2022 Interpersonal Safety Answer Date Record ed Family or friends hurt you Not on file 09/18 Family or friends insult you Not on file 07/2024 Family or friends threaten you Not on file 0 09/18/2023 Family or friends scream or curse at you Not on file 09/18/2023 Housing Stability Answer Date Recorded Living situation today Not on file Living situation problems Not on file 2023 Family and Community Support Answer John e Recorded Help with Day to Day Activities Not on file 09/18/2023 Feeling Lonely or Isolated Not on file 09/18 Educational Attainment Answer Date Huseyin rded Speak language other than Azeri at home Not on file 09/18/2023 Want help with school or training Not on file 09/18/2023 Depression Answer Date Recorded PHQ-2 Risk Not on file 09/18/2023 Disabilities Answer Date Recorded Difficulty concentrating Not on file 024 Difficulty doing errands alone Not on file 0 09/18/2023 Substance Use Answer Date Recorded Used prescription meds for non-medical reasons N ot on file 09/18/2023 Used illegal drugs past 12 months Not on file 09/18/2023 Sex and Gender Information Value Date Recorded Sex Assigned at Not on file Legal Sex Male 12:31 PM CDT Gender Identity Not on file Sexual Orientation Not on file Occupation Industry Job Start Date Job End Date 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 Not on file Not on file Not on dav e Last Filed Vital Signs Vital Sign Reading Time Taken Comments Blood Pressure 124/80 12/22/2024 2:56 PM EDT Pulse 65 12/22/2024 2:56 PM EDT Temperature - - Respiratory Rate - - Oxygen Saturation - - Inhaled Oxygen Concentration - - Weight 119.7 kg (264 lb) 12/22/2024 2:56 PM EDT Height 188 cm (6' 2 ) 12/22/2024 2:56 PM EDT Body Mass Index 33.9 12/22/2024 2:56 PM EDT Plan of Treatment Health Maintenance Due Date Last Done Comments CT Colonography 1956 Colonoscopy 1956 Colorectal Cancer Screening 1956 FOBT/FIT 1956 Fit-DNA (Cologuard) 1956 Sigmoidoscopy 1956 Depression Screening (12+) 1968 Hepatitis C Screening 1974 Pneumococcal 50+ years (1 of 2 - PCV) 1975 Shingles Vaccine (Zoster) (1 of 2) 2006 Respiratory Syncytial Virus (RSV) Adult or (1 - Risk 60-74 years 1-dose series) 2016 Abdominal Aortic Aneurysm (AAA) Screen 2021 COVID-19 VACCINE (1 - 2023- season) 2024 Falls Risk Screening 09/08/2024 Influenza Vaccine (Season Ended) 2025 07/18/20 22 Tobacco Cessation Counseling and Screening (12+) 12/2212/22/2024 DTAP/TDAP/TD VACCINES (2 - Td or Tdap) 06/20/2029 Insurance [facility] Care Teams Caul Fat Puller Relationship Specialty Start Date End Date Provider Not In System, Tavia PCP - General 09/16/22
--- OUTSIDE RECORDS SUMMARY | 2025-02-25 07:08 | XMS_ITS | Encounter Summary ---
Author Organization [facility] Address [address] [place] [address] Care Team Providers Care Post Secondary Professional Name Role Phone Provider Not In System, McT Primary Care Provide r Unavailable Encounter Details Date Type Department Care Team (Late st Contact Info) Description 10/05/2020 Transcribed Document [facility] Family [place] [address] ProviderJavier MD [address] [place] [address] [id number] Social History Tobacco Use Types Packs/Day Years Used Date Smoking Tobacco: Never Assessed Sex and Gender Information Value Date Recorded Sex Assigned at Not on file Legal Sex Male 12:31 PM CDT Gender Identity Not on file Sexual Orientation Not on file documented as of this encounter Miscellaneous Notes * Cerner Conversion Note - Javier ProviderMD - 10/05/2020 2:22 PM ICU TECH [facility] ADDRESS [place], [place] [phone] Name:Iftikhar Perrin Visit Date:10/05/2020 08:37:00 Emergency Department Care Providers: Physician: ELEN SHARIF DO Physician: Our doctors and staff appreciate your choice of [facility] for your emergency medical care. Read these instructions carefully. Please call us if you have any questions about your medical problem. [facility] Emergency Department [phone] [facility] Emergency Department [phone] [facility] Emergency Department [phone] Patient Education Materials Iftikhar Perrin has been given the following patient education materials: Dermatology Laceration Care, Adult A laceration is a cut that may go through all layers of the skin. The cut may also go into the tissue that is right under the skin. Some cuts heal on their own. Others need to be closed with stitches (sutures), moose, skin adhesive strips, or skin glue. Taking care of your injury lowers your risk of infection, helps your injury to heal better, and may prevent scarring. Supplies needed: ??? Soap. ??? Water. ??? Hand cellophane press operator. ??? Bandage (dressing). ??? Antibiotic ointment. ??? Clean towel. How to take care of your cut Wash your hands with soap and water before touching your wound or changing your bandage. If soap and water are not available, use hand cellophane press operator. If your doctor used stitches or moose: ??? Keep the wound clean and dry. ??? If you were given a bandage, change it at least once a day as told by your doctor. You should also change it if it gets wet or dirty. ??? Keep the wound completely dry for the first 24 hours, or as told by your doctor. After that, you may take a shower or a bath. Do not get the wound soaked in water until after the stitches or moose have been removed. ??? Clean the wound once a day, or as told by your doctor: ? Wash the wound with soap and water. ? Rinse the wound with water to remove all soap. ? Pat the wound dry with a clean towel. Do not rub the wound. ??? After you clean the wound, put a thin layer of antibiotic ointment on it as told by your doctor. This ointment: ? Helps to prevent infection. ? Keeps the bandage from sticking to the wound. ??? Have your stitches or moose removed as told by your doctor. If your doctor used skin adhesive strips: ??? Keep the wound clean and dry. ??? If you were given a bandage, you should change it at least once a day as told by your doctor. You should also change it if it gets wet or dirty. ??? Do not get the skin adhesive strips wet. You can take a shower or a bath, but keep the wound dry. ??? If the wound gets wet, pat it dry with a clean towel. Do not rub the wound. ??? Skin adhesive strips fall off on their own. You can trim the strips as the wound heals. Do not remove any strips that are still stuck to the wound. They will fall off after a while. If your doctor used skin glue: ??? Try to keep your wound dry, but you may briefly wet it in the shower or bath. Do not soak the wound in water, such as by swimming. ??? After you take a shower or a bath, gently pat the wound dry with a clean towel. Do not rub the wound. ??? Do not do any activities that will make you really sweaty until the skin glue has fallen off on its own. ??? Do not apply liquid, cream, or ointment medicine to your wound while the skin glue is still on. ??? If you were given a bandage, you should change it at least once a day or as told by your doctor. You should also change it if it gets dirty or wet. ??? If a bandage is placed over the wound, do not let the tape touch the skin glue. ??? Do not pick at the glue. The skin glue usually stays on for 5?10 days. Then, it falls off the skin. General instructions ??? Take shaj-azs-eniugjt and prescription medicines only as told by your doctor. ??? If you were given antibiotic medicine or ointment, take or apply it as told by your doctor. Do not stop using it even if your condition improves. ??? Do not scratch or pick at the wound. ??? Check your wound every day for signs of infection. Watch for: ? Redness, swelling, or pain. ? Fluid, blood, or pus. ??? Raise (elevate) the injured area above the level of your heart while you are sitting or lying down. ??? If directed, put ice on the affected area: ? Put ice in a plastic bag. ? Place a towel between your skin and the bag. ? Leave the ice on for 20 minutes, 2?3 times a day. ??? Prevent scarring by covering your wound with sunscreen of at least 30 SPF whenever you are outside after your wound has healed. ??? Keep all follow-up visits as told by your doctor. This is important. Get help if: ??? You got a tetanus shot and you have any of these problems at the injection site: ? Swelling. ? Very bad pain. ? Redness. ? Bleeding. ??? You have a fever. ??? A wound that was closed breaks open. ??? You notice a bad smell coming from your wound or your bandage. ??? You notice something coming out of the wound, such as wood or glass. ??? Medicine does not relieve your pain. ??? You have more redness, swelling, or pain at the site of your wound. ??? You have fluid, blood, or pus coming from your wound. ??? You notice a change in the color of your skin near your wound. ??? You need to change the bandage often because fluid, blood, or pus is coming from the wound. ??? You start to have a new rash. ??? You start to have numbness around the wound. Get help right away if: ??? You have very bad swelling around the wound. ??? Your pain suddenly gets worse and is very bad. ??? You notice painful lumps near the wound or anywhere on your body. ??? You have a red streak going away from your wound. ??? The wound is on your hand or foot, and: ? You cannot move a finger or toe. ? Your fingers or toes look pale or bluish. Summary ??? A laceration is a cut that may go through all layers of the skin. The cut may also go into the tissue right under the skin. ??? Some cuts heal on their own. Others need to be closed with stitches, moose, skin adhesive strips, or skin glue. ??? Follow your doctor's instructions for caring for your cut. Proper care of a cut lowers the risk of infection, helps the cut heal better, and prevents scarring. This information is not intended to replace advice given to you by your health care provider. Make sure you discuss any questions you have with your health care provider. Document Released: 02/10/2009 Document Revised: 2018 Document Reviewed: 09/14/2018 [employer] Patient Education ? 2020 [employer] Facial Laceration A facial laceration is a cut on the face. This can happen because of an accident or injury that cuts or tears the skin or tissues on your face. These injuries can hurt and bleed. Some cuts may need to be closed with stitches (sutures), skin glue, or skin tape (adhesive) strips. Cuts usually heal quickly, but they can leave a scar. It can take 1?2 years for the scar to go away completely. Follow these instructions at home: Wound care ??? Follow your doctor's instructions for wound care. These instructions will vary depending on how the wound was closed. ? For stitches: ? Keep the wound clean and dry. ? If you were given a bandage (dressing), change it at least one time a day, or as told by your doctor. Also change the bandage if it gets wet or dirty. ? Wash the wound with soap and water two times a day, or as told by your doctor. Rinse off the soap with water. Use a clean towel to pat the wound dry. ? After cleaning, apply a thin layer of antibiotic ointment as told by your doctor. This helps prevent infection and keeps the bandage from sticking to the wound. ? You may shower as usual after the first 24 hours. Do not soak the wound until the stitches are taken out. ? Go back to have your stitches taken out as told by your doctor. ? Do not wear makeup until your doctor says it is okay. ? For skin tape strips: ? Keep the wound clean and dry. ? Do not let the skin tape strips get wet. ? Bathe carefully to keep the wound and skin tape strips dry. If the wound gets wet, pat it dry with a clean towel right away. ? Skin tape strips fall off on their own over time. You may trim the strips as the wound heals. Do not take off skin tape strips that are still stuck to the wound. ? For skin glue: ? You may briefly wet your wound in the shower or bath. ? Do not soak or scrub the wound. ? Do not swim. ? Do not do anything that makes you sweat a lot until the skin glue has fallen off on its own. ? After you shower or take a bath, use a clean towel to gently pat the wound dry. ? Do not put liquid medicine, cream medicine, ointment, or makeup on your wound while the skin glue is in place. This may loosen the film before your wound is healed. ? If you have a bandage over your wound, be careful not to apply tape directly over the skin glue. This may pull off the skin glue before the wound is healed. ? Do not spend a long time in the sun or use a tanning lamp while the skin glue is in place. ? The skin glue usually stays in place for 5?10 days. Then, it naturally falls off the skin. Do not pick at the skin glue. General instructions ??? Take mptk-dlg-ztwhupu and prescription medicines only as told by your doctor. ??? Check your wound area every day for signs of infection. Check for: ? More redness, swelling, or pain. ? More fluid or blood. ? Warmth. ? Pus or a bad smell. ??? If you were prescribed an antibiotic, take or apply it as told by your doctor. Do not stop taking or applying the antibiotic even if your condition improves. ??? After the cut has healed: ? Know that it can take a year or two for redness or scarring to fade. ? Apply sunscreen to the skin of your healed wound to minimize scarring. Ultraviolet (UV) rays can darken scar tissue. Contact a doctor if: ??? You have a fever. ??? You have more redness, swelling, or pain around your wound. ??? You have more fluid or blood coming from your wound. ??? Your wound feels warm to the touch. ??? You have pus or a bad smell coming from your wound. Get help right away if: ??? You have a red streak going away from your wound. Summary ??? A cut on the face (facial laceration) may need to be closed with stitches (sutures), skin tape strips, or skin glue. ??? Follow your doctor's instructions for wound care. ??? Check your wound area every day for signs of infection such as redness, swelling, or drainage. This information is not intended to replace advice given to you by your health care provider. Make sure you discuss any questions you have with your health care provider. Document Released: 02/10/2009 Document Revised: 12/16/2019 Document Reviewed: 09/25/2017 [employer] Patient Education ? 2020 [employer] Procedures Sutures, Moose, or Adhesive Wound Closure Wound closure refers to holding skin and underlying tissue together while it heals, such as after surgery or after an injury. Health care providers use stitches (sutures), moose, and special types of glue (skin adhesives) to close wounds. Your health care provider will use a wound closure method that helps you heal quickly and reduces the chances of infection or scarring. The type of wound closure depends on the location, size, and depth of your wound. In most cases, wounds are closed as soon as possible (primary skin closure). Sometimes, closure is delayed so the wound can be cleaned and then can heal naturally over weeks or months (delayed wound closure). This reduces the chance of infection. What are the different types of wound closure? Adhesive glue To use adhesive glue, your health care provider holds the edges of the wound together and paints the glue on the surface of your skin. You may need more than one layer of glue. Once the glue is dry, the wound may be covered with a dressing. This type of skin closure may be used for small wounds that are not deep (superficial wounds). It is often used for children and on facial wounds. Adhesive glue is less painful than other methods of wound closure, and it does not require a medicine to numb the area (local anesthetic). This method also leaves nothing to be removed. Adhesive glue cannot be used for wounds that are deep, uneven, or bleeding. It is not used inside of a wound. Adhesive strips These strips are made of paper that is sticky (adhesive) and has many small holes in it (is porous). They are applied across your wound edges like a regular bandage. Adhesive strips may be used to close very shallow wounds. They may be used along with sutures to improve skin closure. Sutures Sutures come in many different materials, strengths, and sizes. They may break down as your wound heals (absorbable), or they may need to be removed (nonabsorbable). Your health care provider sews your skin or the tissues under your skin together with sutures and a steel needle. Your skin edges may be closed in one long (continuous) stitch or in separate stitches. Then the sutures are tied and cut. Sutures can be used for all kinds of wounds. Absorbable sutures may be used to close tissues under the skin. Sutures can cause a skin reaction that can lead to infection. Moose When moose are used to close a wound, the edges of your skin on both sides of the wound are brought close together. A staple is placed across the wound, and an instrument secures the staple edges together. Temple are often used to close surgical incisions. They are faster to use than sutures, and they cause less skin reaction. Temple need to be removed using a tool that bends the moose away from your skin. Follow these instructions at home: Medicines ??? Take jhzc-ttv-irparci and prescription medicines only as told by your health care provider. ??? If you were prescribed an antibiotic medicine, take it as told by your health care provider. Do not stop taking the antibiotic even if you start to feel better. Wound care ??? Follow instructions from your health care provider about how to take care of your wound and dressing. ??? Wash your hands with soap and water before and after touching your wound or dressing. If soap and water are not available, use hand cellophane press operator. ??? Do not try to remove your wound closures unless your health care provider tells you to do that. You may need a follow-up visit with your health care provider to remove your closures. ? Wound closures may stay in place for 2 weeks or longer. ? Absorbable sutures may dissolve after a few days or weeks. ? If adhesive strip edges start to loosen and curl up, you may trim the loose edges. ??? Do not pick at your wound. Picking can cause an infection. ??? Apply ointments or creams only as told by your health care provider. ??? Check your wound every day for signs of infection. Check for: ? Redness, swelling, or pain. ? Fluid or blood. ? Warmth. ? Pus or a bad smell. General instructions ??? Do not take baths, swim, or use a hot tub until your health care provider approves. Ask your health care provider if you may take showers. You may only be allowed to take sponge baths. ??? Do not soak your wound in water. ??? Keep all follow-up visits as told by your health care provider. This is important. Contact a health care provider if you: ??? Have a fever or chills. ??? Have redness, swelling, or pain around your wound. ??? Have fluid or blood coming from your wound. ??? Notice that your wound feels warm to the touch. ??? Notice pus or a bad smell coming from your wound. ??? Notice that the edges of your wound start to separate after your sutures come out. ??? Notice that your wound becomes thick, raised, and darker in color after your sutures come out (scarring). Summary ??? The type of wound closure that your health care provider will use depends on the location, size, and depth of your wound. Options to close wounds include stitches (sutures), moose, special types of glue (skin adhesives), and adhesive strips. ??? Your health care provider will use a wound closure method that helps you heal quickly and reduces the chances of infection or scarring. ??? Do not soak your wound in water. Do not take baths, shower, swim, or use a hot tub until your health care provider approves. This information is not intended to replace advice given to you by your health care provider. Make sure you discuss any questions you have with your health care provider. Document Released: 05/20/2002 Document Revised: 08/07/2018 Document Reviewed: 07/02/2018 [employer] Patient Education ? 2020 [employer] FOLLOW UP CARE Most conditions that require [...] x-ray department to pick them up o [facility] # [phone] [facility] # [phone] o [facility] # [phone] ?? If you had cultures done and [...] quit. o National Network of Tobacco Cessation PDkngopqx4-396-WHPT-NOW o [employer] o [employer] 5-119172-8524 o [employer] [phone] FINANCIAL INFORMATION ?? [facility] provides financial counseling to anyone who requests our services. ?? Emergency Physicians are independently contracted to provide your care. You will receive a bill for the care provided to you by the Physician and/or the Physician Dispatcher Clerk. This will be a separate bill from [...] prescriptions and follow-up instructions: Patient Education Materials: Dermatology Laceration Care, Adult, Rezq-ow-Waoi Facial Laceration, Sbjn-re-Lypz Procedures Sutures, Moose, or Adhesive Wound Closure Follow-Up Instructions: Follow Up With: Where: When: Return to Emergency Department Within 5 to 7 days Comments: for suture/staple removal IAydin Steven D, have received a copy of these discharge instructions and acknowledge understanding of these instructions. . I understand that my condition may require more care and will arrange for further treatment as recommended Patient Signature / or Patient Rotary Soil Stabilizer Provider Signature Date Electronically signed by Andree [facility] Conversion Lunch Counter Manager Cerner at 12/10/2022 12:11 PM CDT documented in this encounter Plan of Treatment Not on file documented as of this encounter Visit Diagnoses Not on filedocumented in this encounter Care Teams Post Secondary Professional Relationship Specialty Start Date End Date Provider Not In System, Tavia PCP - General 09/16/22 documented as of this encounter
--- OUTSIDE RECORDS SUMMARY | 2025-02-25 07:08 | XMS_ITS | Clinical Summary ---
Author Organization [facility] Address [address] [place] [id number] Care Team Providers Care Displayer Merchandise Name Role Phone System, Provider Not In MD Primary Care Provider Unavailable Allergies No known active allergies Medications buPROPion XL (Wellbutrin XL) 150 MG 24 hr tablet 10/08/2022 Active clopidogrel (Plavix) 75 MG tablet 10/08/2022 Active doxazosin (Cardura) 2 MG tablet Take 0.5 tablets by mouth 1 (one) time each day. 07/18/2022 Active doxazosin (Cardura) 1 MG tablet TAKE 1 TABLET AT BEDTIME. 12/31/2016 Active finasteride (Proscar) 5 MG tablet 10/08/2022 Active hydroCHLOROthia zide (HYDRODiuril) 12.5 MG tablet 10/08/2022 Acti ve losartan (Cozaar) 100 MG tablet 10/08/2022 Active meloxicam (Mobic) 15 MG tablet 10/08/2022 Active metoprolol succinate XL (Toprol-XL) 50 MG 24 hr tablet 10/08/2022 Act jose daniel Active Problems Problem Noted Date Diagnosed Date Pain of right scapula 12/03/2022 Winging of scapula 12/03/2022 Family History Medical History Relation Name Comments Coronary artery disease Brother Cardiac disorder Father Cardiac disorder Mother Relation Name Status Comments Brother Father Mother Social History Tobacco Use Types Packs/Day Years Used Date Smoking Tobacco: Every Day Cigarettes 1 15 Smokeless Tobacco: Current Tobacco Cessation:Ready to Q uit: Not Asked; Counseling Given: Not Answered Alcohol Use Standard Drinks/Week Comments Yes 0 (1 standard drink = 0.6 oz pur e alcohol) PHQ-2 Answer Date Recorded Patient Health Questionnaire-2 Score 0 12/10/2022 PHQ-2A Answer Date Recorded Patient Health Questionnaire-2 Score 0 12/10/2022 Sex and Gender Information Value Date Recorded Sex Assigned at Not on file Legal Sex Male 5:57 PM EDT Gender Identity Not on file Sexual Orientation Not on file Last Filed Vital Signs Vital Sign Reading Time Taken Comments Blood Pressure 117/75 01/21/2023 7:44 AM EDT Pulse 67 01/21/2023 7:44 AM EDT Temperature 36.7 C (98 F) 12/10/2022 7:56 AM EDT Respiratory Rate - - Oxygen Saturation 98% 01/21/2023 7:44 AM EDT Inhaled Oxygen Concentration - - Weight 117 kg (257 lb) 01/21/2023 7:44 AM EDT Height 188 cm (6' 2 ) 01/21/2023 7:44 AM EDT Body Mass Index 33 01/21/2023 7:44 AM EDT Plan of Treatment Health Maintenance Due Date Last Done Comments [facility]-Hepatitis C Screening 1956 [facility]-Infant/Child/Adol SDOH Screenings 1955 [facility]- SDOH Screenings 1974 [facility]-Adult SDOH Screenings 1974 CT Colonography 2001 FIT-DNA 2001 FIT 2001 FOBT 2001 Sigmoidoscopy 2001 [facility]-Pneumococcal Vaccine: 50 + Years (1 of 1 - PCV) 2006 [facility]-Zoster Vaccines (1 of 2) 2006 [facility]-DTaP,Tdap,and Td Vaccine s (1 - Tdap) 06/21/2019 06/20/2019 [facility]-Depression Screening 12/11/2023 12/10/2022 [id number] Vaccine (1 - 2023- season) 2024 [facility]-Influenza Vaccine (Seaso n Ended) 2025 Colonoscopy 05/14/2026 05/14/2016 [facility]-Colorectal Cancer Screening 05/14/2026 [facility]-RSV Vaccine: 60+ Years o r (1 - 1-dose 75+ series) 2031 [facility]-Obesity Intervention Completed 023, 12/10/2022, 12/03/2022 HPV Vaccines Aged Out No longer eligi ble based on patient's age to complete this topic [facility]-HIB Vaccines Aged Out No longer e ligible based on patient's age to complete this topic [facility]-Hepatitis A Vaccines Aged Out No longer eligible based on patient's age to complete this topic [facility]-IPV Vaccines Aged Out No longer e ligible based on patient's age to complete this topic [facility]-Rotavirus Vaccines Aged Out No lo nger eligible based on patient's age to complete this topic Procedures Procedure Name Priority Date/Time Associated Diagnosis Comments COLONOSCOPY 05/14/2016 from Last 3 Months or Most Recently Relevant to Health Maintenance Results * COLONOSCOPY (05/14/2016) Anatomical Region Laterality Modality Endoscopy Narrative 05/14/2016 Ordered by an unspecified provider. Historical Provider GI PROCEDURE ORDERABLES F inal Result from Last 3 Months or Most Recently Relevant to Health Maintenance [place] [address] [facility] Member Subscriber Plan / Payer (Ef fective 2018-Present) Name:Iftikhar Tan Relation to Subscriber:Self Name:Iftikhar Tan Payer ID:[id number] ([facility]) Type:Not on file Address: [address] [place] [phone] [facility] [address] [place] [id number] [facility] Care Teams Displayer Merchandise Relationship Specialty Start Date End Date System, Provider Not In, [place] [address] PCP - General Family Medicine 11/22/22
--- OUTSIDE RECORDS SUMMARY | 2025-02-25 07:08 | XMS_ITS | Referral Summary ---
Author Organization [employer] Address [address] [place] [address] Care Team Providers Care Supervisor Model Making Name Role Phone Provider Not In System, McT Primary Care Provide r Unavailable Encounters Date Type Department Care Team Description 01/19/2025 Refill [facility] Cardiology [address] [place] [address] Marianna Salgado PA-C 12/22/2024 Travel 12/22/2024 2:45 PM EDT Office Visit [facility] Cardiology [address] [place] [address] Marianna Salgado PA-C Arteriosclerotic cardiovascular disease (ASCVD) (Primary Dx); Benign essential hypertension; Mixed hyperlipidemia from Last 3 Months Allergies No known active allergies Medications doxazosin [...] low back pain BPH (benign prostatic hyperplasia) Social History Tobacco Use Types Packs/Day Years [...] place to sleep or slept in a usp (including now)? 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
--- OUTSIDE RECORDS SUMMARY | 2025-02-25 07:08 | XMS_ITS | Encounter Summary ---
Author Organization [employer] Address [address] [place] [address] Care Team Providers Care Gem Carver Name Role Phone Provider Not In System, McT Primary Care Provide r Unavailable Encounter Details Date Type Department Care Team (Late st Contact Info) Description 10/05/2020 Transcribed Document [facility] [place] [facility] [place] [address] ProviderJavier MD [address] [place], [place] [id number] Social History Tobacco Use Types Packs/Day Years Used Date Smoking Tobacco: Never Assessed Sex and Gender Information Value Date Recorded Sex Assigned at Not on file Legal Sex Male 12:31 PM CDT Gender Identity Not on file Sexual Orientation Not on file documented as of this encounter Miscellaneous Notes * Cerner Conversion Note - Javier ProviderMD - 10/05/2020 2:22 PM OPERATIONS VOCATIONAL INSTRUCTOR [facility] Emergency Department Depart Summary PERSON INFORMATION Name Iftikhar Perrin Age 64 Years 1955 Sex Male Language PCP Marital Status Phone [phone] Visit Id Visit Reason Fall Specialty Enc Type Emergency Med Service Referred by Track Group [facility] Discharge Tracking Id [id number] Checkout 10/05/2020 09:22:40 Checkin 10/05/2020 08:37:00 Acuity 3 - Urgent [facility] Dispo Type Arrival 10/05/2020 08:37:00 Reg Status LOS 000 00:45 Address: [address] [address] POWERFORMS PHYSICIAN NOTES VITALS INFORMATION Vital Sign Triage Temp 98.1 Temp Route Oral/Mouth Pulse Rate 72 Respiratory Rate 20 Blood Pressure 138/ 78 LOCATION INFORMATION Arrival Nurse Unit Room Bed 10/05/2020 08:37:00 [facility] ED Waitroom ([facility]) 10/05/2020 08:45:18 [facility] ED 4 10/05/2020 09:22:40 [facility] ED Checkout ([facility]) MEDICAL INFORMATION Allergy Info: No Known Allergies PATIENT EDUCATION INFORMATION Instructions: Sutures, [place], or Adhesive Wound Closure; Laceration Care, Adult, Chai-ka-Yimk; Facial Laceration, Vvfq-ds-Gves Follow up: With: Address: When: Return to Emergency Department Within 5 to 7 days Comments: for suture/staple removal DIAGNOSIS documented in this encounter Plan of Treatment Not on file documented as of this encounter Visit Diagnoses Not on filedocumented in this encounter Care Teams Gem Carver Relationship Specialty Start Date End Date Provider Not In System, Tavia PCP - General 09/16/22 documented as of this encounter
--- OUTSIDE RECORDS SUMMARY | 2025-02-25 07:08 | XMS_ITS | Encounter Summary ---
Author Organization [employer] Address [address] [address] [place] [address] Care Team Providers Care Pen Tester Name Role Phone Provider Not In System, McT Primary Care Provide r Unavailable Encounter Details Date Type Department Care Team (Late st Contact Info) Description 10/09/2020 Transcribed Document [facility] [place] [facility] [place] [address] ProviderJavier MD [address] [place] [id number] Social History Tobacco Use Types Packs/Day Years Used Date Smoking Tobacco: Never Assessed Sex and Gender Information Value Date Recorded Sex Assigned at Not on file Legal Sex Male 12:31 PM CDT Gender Identity Not on file Sexual Orientation Not on file documented as of this encounter Miscellaneous Notes * Cerner Conversion Note - Javier ProviderMD - 10/09/2020 3:14 PM LUNCH COOK [facility] Emergency Department Depart Summary PERSON INFORMATION Name Iftikhar Perrin Age 64 Years 1955 Sex Male Language PCP Marital Status Phone [phone] Visit Id Visit Reason Facial Complaint Specialty Enc Type Emergency Med Service Referred by Track Group [facility] Discharge Tracking Id [id number] Checkout 10/09/2020 10:14:54 Checkin 10/09/2020 08:19:00 Acuity 4 - Non-urgent [facility] Dispo Type Arrival 10/09/2020 08:19:00 Reg Status LOS 000 01:55 Address: [address] [place] [address] POWERFORMS PHYSICIAN NOTES VITALS INFORMATION Vital Sign Triage Temp 98.9 Temp Route Oral/Mouth Pulse Rate 82 Respiratory Rate 18 Blood Pressure 122/ 77 LOCATION INFORMATION Arrival Nurse Unit Room Bed 10/09/2020 08:19:00 [facility] ED Waitroom ([facility]) 10/09/2020 08:58:06 [facility] ED 6 10/09/2020 10:14:54 [facility] ED Checkout ([facility]) MEDICAL INFORMATION Allergy Info: No Known Allergies PATIENT EDUCATION INFORMATION Instructions: Jaw Contusion Follow up: With: Address: When: Follow up with primary care provider Within 2-4 days DIAGNOSIS Electronically signed by Andree [facility] Conversion Accounts Payable Supervisor Cerner at 12/10/2022 12:11 PM CDT documented in this encounter Plan of Treatment Not on file documented as of this encounter Visit Diagnoses Not on filedocumented in this encounter Care Teams Pen Tester Relationship Specialty Start Date End Date Provider Not In System, Tavia PCP - General 09/16/22 documented as of this encounter
--- OUTSIDE RECORDS SUMMARY | 2025-02-25 07:08 | XMS_ITS | Encounter Summary ---
Author Organization [employer] Address [address] [place] [address] Care Team Providers Care Oceanographer Geological Name Role Phone Provider Not In System, McT Primary Care Provide r Unavailable Encounter Details Date Type Department Care Team (Late st Contact Info) Description 10/05/2020 Transcribed Document [facility] [place] [facility] [place] [address] ProviderJavier MD [address] [place] [address] [id number] Social History Tobacco Use Types Packs/Day Years Used Date Smoking Tobacco: Never Assessed Sex and Gender Information Value Date Recorded Sex Assigned at Not on file Legal Sex Male 12:31 PM CDT Gender Identity Not on file Sexual Orientation Not on file documented as of this encounter Miscellaneous Notes * Cerner Conversion Note - Javier ProviderMD - 10/05/2020 2:22 PM 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 Read these instructions carefully. Please call us if you have any questions about your medical problem. [facility] Emergency Department [phone] [facility] Emergency Department [phone] [facility] Emergency Department [phone] Patient Education Materials Iftikhar Perrin has been [...] needed: ??? Soap. ??? Water. ??? Hand housekeeping lead. ??? Bandage (dressing). ??? Antibiotic ointment. ??? Clean towel. How to take care of your cut Wash your hands with soap and water before touching your wound or changing your bandage. If soap and water are not available, use hand housekeeping lead. If your doctor used stitches or moose: [...] off the skin. General instructions ??? Take gwoa-bwl-mlvkkxj and prescription medicines only as told by [...] 02/10/2009 Document Revised: 2018 Document Reviewed: 09/14/2018 [employer] Patient Education ? 2020 [employer] Facial Laceration A facial laceration is [...] the skin glue. General instructions ??? Take tego-wad-adhtjme and prescription medicines only as told by [...] 02/10/2009 Document Revised: 12/16/2019 Document Reviewed: 09/25/2017 [employer] Patient Education ? 2020 [employer] Procedures Sutures, Moose, or Adhesive Wound [...] an instrument secures the staple edges together. [place] are often used to close surgical incisions. They are faster to use than sutures, and they cause less skin reaction. [place] need to be removed using a tool that bends the moose away from your skin. Follow these instructions at home: Medicines ??? Take fmkx-iri-pudmsmi and prescription medicines only as told by [...] and water are not available, use hand housekeeping lead. ??? Do not try to remove your [...] 05/20/2002 Document Revised: 08/07/2018 Document Reviewed: 07/02/2018 [employer] Patient Education ? 2020 [employer] FOLLOW UP CARE Most conditions that [...] x-ray department to pick them up o [facility] # [phone] o [facility] # [phone] o [facility] # [phone] ?? If you had cultures done and [...] quit. o National Network of Tobacco Cessation [id number]-YYIR-NOW o [place] Lung Association o [place] Heart Association 0-494567-4241 o Galileo/Mohan Su [phone] FINANCIAL INFORMATION ?? [facility] provides financial counseling to anyone who requests our services. ?? Emergency Physicians are independently contracted to provide your care. You will receive a bill for the care provided to you by the Physician and/or the Physician Launch Steward. This will be a separate bill from [...] Patient Education Materials: Dermatology Laceration Care, Adult, Ntvu-qa-Dijy Facial Laceration, Hqiu-sr-Zdmd Procedures Sutures, Moose, or Adhesive Wound Closure Follow-Up Instructions: Follow Up With: Where: When: Return to Emergency Department Within 5 to 7 days Comments: for suture/staple removal Aydin Cruz Steven D, have received a copy of these discharge instructions and acknowledge understanding of these instructions. . I understand that my condition may require more care and will arrange for further treatment as recommended Patient Signature / or Patient Physician Scribe Provider Signature Date Date/Time 10/05/2020 09:22 [facility] Home Medications Name Iftikhar [...] appropriateness and dosages of all your medications. IAydin Steven D, have received a copy of discharge home medications and acknowledged understanding of these instructions. I hereby certify that I have received the above instructions and that all of my concerns/questions regarding this visit have been adequately answered. Patient Signature Date Witnessed and/or instructed by (signature) Date Electronically signed by Interface, [facility] Conversion Room Service Server Cerner at 12/10/2022 12:11 PM CDT documented in this encounter Plan of Treatment Not on file documented as of this encounter Visit Diagnoses Not on filedocumented in this encounter Care Teams Oceanographer Geological Relationship Specialty Start Date End Date Provider Not In System, McT PCP - General 09/16/22 documented as of this encounter
--- OUTSIDE RECORDS SUMMARY | 2025-02-25 07:08 | XMS_ITS | Encounter Summary ---
Author Organization [employer] Address [address] [place] [address] Care Team Providers Care Rural Service Engineer Name Role Phone Provider Not In System, McT Primary Care Provide r Unavailable Reason for Visit * Reason Comments New Med Request Encounter Details Date Type Department Care Team (Late st Contact Info) Description [facility] [address] [place] [address] Marianna Salgado, PAVikramC [address] [facility] [address] [place] [address] Social History Tobacco Use Types Packs/Day Years Used Date Smoking Tobacco: Some Days Cigarettes 0.5 31 Smokeless Tobacco: Never Alcohol Use Standard Drinks/Week Comments Yes 0 [...] place to sleep or slept in a senior care (including now)? 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
--- OUTSIDE RECORDS SUMMARY | 2025-02-25 07:08 | XMS_ITS | Data Portability ---
Author Organization [facility] BRIANNA Kennedy MOUTH OF WILSON CLOSED Address [address] [place] [address] Care Team Providers Care Verification Engineer Name Role Phone VICKI AMOS Primary Care Provider GIANNA COSTELLO Technical Buyer [phone] Assessment No assessment recorded. Plan of Treatment Reminders Order Date Submit Date Provider Last Modified By Organization Details Last Modified Time Details Appointments None recorded. Lab surgical pathology study 2023 024 [facility], [address] [place] [address], [phone], 11:34:05 Referral None recorded. Procedures None recorded. Surgeries None recorded. Imaging None recorded. Medication Orders None recorded. Patient TargetsNo targets recorded. Patient InstructionsNo instructions recorded. Reason for Referral None Reported. Results Created Date Observation Date Name Description Value Unit Range Abnormal Flag Note LastModifiedBy Organization Detail LastModifiedTime Result Notes None recorded. Procedures Surgical History Date Name Laterality Status Provider Name and Address Organization Details Recorded Time 4 DAK - Cryo AK completed Evy Salazar [facility] 05/13/2024 08:36:05 4 DAK - Shave removal face/ears completed Zaire Arevalo [facility] 11/19/2023 08:20:22 Imaging Results None recorded. Procedure Notes None recorded. Medical Equipment None Reported. Allergies No known drug allergies Medications Name Sig Start Date Stop Date Status Note LastModified by Organization Details LastModified Time amoxicillin 500 mg capsule TAKE 1 CAPSULE BY MOUTH 3 TIMES DAILY FOR 10 DAYS. 11/18 completed Not Available Not Available Not Available methocarbam ol 500 mg tablet TAKE 1 TABLET BY MOUTH TWICE A DAY NEEDED FOR MUSCLE PAIN 11/18 completed Not Available Not Available Not Available doxazosin 1 mg tablet Take 1 tablet every day by oral route. active Not Available Not Available No t Available metoprolol succinate ER 50 mg tablet,exte nded release 24 hr active Not Available Not Available Not Available meloxicam 15 mg tablet active Not Available Not Available Not Available prednisone 20 mg tablet TAKE ONE TABLET BY MOUTH TWICE DAILY X 5 DAYS, THEN ONE TAB DAILY X 5 DAYS. 11/18 completed Not Available Not Available Not Available penicillin V potassium 500 mg tablet TAKE 1 TABLET BY MOUTH FOUR TIMES A DAY 11/18 completed Not Available Not Available Not Available clopidogrel 75 mg tablet Take 1 tablet every day by oral route. active Not Available Not Available No t Available nicotine (polacrilex ) 4 mg gum CHEW 1 PIECE BY MOUTH EVERY HOUR NEEDED FOR SMOKING CESSATION . active Not Available Not Available No t Available Diovan HCT 160 mg-12.5 mg tablet Take 1 tablet every day by oral route. active Not Available Not Available No t Available hydrochloro thiazide 25 mg tablet TAKE 1 TABLET (25 MG TOTAL) BY MOUTH DAILY. active Not Available Not Available No t Available mupirocin 2 % topical ointment APPLY TOPICALLY TO SURGICAL SITE ON MID BACK UNTIL WELL HEALED. active Not Available Not Available No t Available levofloxaci n 500 mg tablet TAKE ONE TABLET BY MOUTH DAILY 11/18 completed Not Available Not Available Not Available methylpredn isolone 4 mg tablets in a dose pack TAKE 6 TABLETS ON DAY 1,THEN 5 TABS ON DAY 2,THEN 4 TABS ON DAY 3, 3 TABS ON DAY 4,THEN 2 TABS ON DAY 5 AND 1 TAB ON DAY 6. *TAKE WITH FOOD* 11/18 completed Not Available Not Available Not Available losartan 100 mg tablet active Not Available Not Available Not Available doxycycline hyclate 100 mg tablet TAKE 1 TABLET BY MOUTH TWICE DAILY WITH A MEAL. STAY UPIGHT 1 HOURS AFTER TAKING AND USE SUN PROTECTIO N WHILE TAKING MEDICATIO N 11/18 completed Not Available Not Available Not Available finasteride 5 mg tablet active Not Available Not Available Not Available doxazosin 2 mg tablet active Not Available Not Available No t Available rosuvastati n 20 mg tablet active Not Available Not Available Not Available Crestor 5 mg tablet Take 1 tablet every day by oral route. active Not Available Not Available No t Available bupropion HCl XL 150 mg 24 hr tablet, extended release 11/18 completed Not Available Not Available Not Available meloxicam active Not Available Not Ines ilable Not Available metoprolol succinate active Not Available Not Available No t Available hydrochloro thiazide 12.5 mg tablet active Not Available Not Available Not Available Mucinex DM 60 mg-1,200 mg tablet,exte nded release 12 hr TAKE ONE TABLET BY MOUTH EVERY 12 HOURS active Not Available Not Available No t Available Vitals Date Recorded Body height Body weight Body mass index (BMI) Body temperature Heart rate Respiratory rate Oxygen saturation Oxygen saturation in Arterial blood by Pulse oximetry Systolic blood pressure Diastolic blood pressure Provider Name and Address Organization Details Last Updated DateTime 7 182.88 cm 534692. 61 g 35.4 kg/m2 97.2 [degF] 72 /min 20 /min 96 % 96 % 128 mm[Hg] 80 mm[Hg] Barbara Morris [facility] 7 18:28:11 Social History Question Answer Notes LastModified by [employer] Details LastModified Time Tobacco Smoking Status Current Every Day Smoker Barbara Morris [facility] 10/28/2016 18:32:01 What Was The Date Of Your Most Recent Tobacco Screening? 11/19/2023 Information not available 11/19/2023 Sex: Unknown Functional Status Question Answer Note LastModified by [employer] Details LastModified Time What is your level of alcohol consumption? Occasional Information not available 11/19/2023 Mental Status None recorded. Family History Nothing Reported. Medical History Condition Response Squamous Cell Carcinoma Y Arthritis Y High Cholesterol Y Skin Cancer Y Hypertension Y Past Encounters Encounter ID Performer Location Encounter Start Date Encounter Closed Date Diagnosis/Indication Diagnosis SNOMED-CT Code Diagnosis ICD10 Code Diagnosis Note [id number] WILL ROE APRN SAME DAY JESSAMINE [address] [facility] [place] [address] 10/28/2016 17:50:08 10/29/2016 12:13:37 Concussion with no loss of consciousness 73520780 S06.0X0A It is 6:[address] needs [address] head and it cannot be done here tonight. Explained that he could have internal head damage such as bleed and that can only be checked with imaging. He wants to go to [facility] closer to his home. ER was called and confirmed they have CT - he will be seen there thru ER - notes sent with him Headache 70152174 R51 [id number] TOM SZYMANSKI [address] [address] 11/19/2023 07:45:30 11/19/2023 13:08:39 Neoplasm of uncertain behavior of skin 69647640 D48.5 L cheek - 3mm purple papule. r/o: angiomaBio psy was taken today. Disorder of nail 0915500 8 L60.9 Recommend soaking in water and vinegar mixture.Pt will call if worsening or not improving [id number] TOM MARTINEZ [address] [address] 05/13/2024 07:59:15 05/17/2024 13:57:53 Actinic keratosis 771119691 L57.0 Precancero us lesion(s). Will LN2 today.Can leave a white discolorat ion in the areas when LN2 is performed. Follow-up if lesion(s) persists or do not resolve. Onychomycosis 405889537 B35.1 Nature of the diagnosis was explained. Patient notes that the nail is not bothersome . Rec no treatment if nail is not bothersome .Follow up if area worsens or becomes bothersome . Health Concerns Section Related Observation LastModified by Organization Detai ls LastModified Time None Recorded Concern Status LastModified by Organization Details LastModified Time None Recorded Advance Directives Directive None Recorded Payers Insurance Date Sequence Insurance Name Policy Number Policy Park Covered Member ID Park Member ID Guarantor Name 05/12/2024 1 [place] [id number] Iftikhar Perrin [id number] Iftikhar Perrin 05/13/2024 1 [place] [id number] Iftikhar Perrin [id number] Iftikhar Perrin Notes Date Note Type Note Provider Name and Address Organization Details Recorded Time 10/28/2016 text/html WALKIN HeadacheWas working out in [employer] yesterday - had tree limb fall and hit him on head on RIGHT forehead.He denies loss of consciousness with accident. Knocked me down and says he sat on ground about 5 minutes feeling dazed.At the time, he did not think was serious, but last night, started hearing a squeeking sound out of LEFT ear and decreased hearing in left ear.Has terrible GOODEN in right forehead area.Had dizziness last night but that resolved. Had some nausea right after accident but that has totally resolved. Slept fine last night. 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 He denies any abd pain.Neck just alittle achy. No numbness in arms or hands.Denies any visual changes.Denies any weakness. Hx CAD - stent in 2006. He denies any chest pain and no SOB. WILL ROE, MAJOR ACCOUNT MANAGER [address] [place], [address], [facility] 10/28/2016 19:05:32 11/19/2023 text/html I have a spot on my face that I'd like removed. - Location: Left cheek.- Duration: One year.- Prior treatments: None mentioned.- REPORTS: Raised, brown spot on face. GIANNA COSTELLO PA-C [address] [place], [address], [facility] 11/19/2023 08:35:23 05/13/2024 text/html I have spots of concernLocation: bilateral armsReports: rough spots, one near prior NMSC- patient would also to have right thumb nail checked History of SCCL forearm, R dorsal hand, R proximal dorsal hand LOI BECKWITH PA-C [address] [place], [address], [facility] 05/14/2024 15:27:25
--- OUTSIDE RECORDS SUMMARY | 2025-02-25 07:08 | XMS_ITS | Encounter Summary ---
Author Organization [employer] Address [address] [place] [address] Care Team Providers Care Station Helper Name Role Phone Provider Not In System, McT Primary Care Provide r Unavailable Encounter Details Date Type Department Care Team (Late st Contact Info) Description 10/05/2020 Transcribed Document [facility] [place] [address] ProviderJavier MD [address] [place] [address] [phone] Social History Tobacco Use Types Packs/Day Years Used Date Smoking Tobacco: Never Assessed Sex and Gender Information Value Date Recorded Sex Assigned at Not on file Legal Sex Male 12:31 PM CDT Gender Identity Not on file Sexual Orientation Not on file documented as of this encounter Miscellaneous Notes * Cerner Conversion Note - Javier ProviderMD - 10/05/2020 1:47 PM PIPE FITTER FIRE SPRINKLER SYSTEMS ANNIEK Triage ED Entered On: 10/05/2020 8:52 EST Performed On: 10/05/2020 8:47 EST by Vera Pike Triage Assessment Triage Date/Time : 10/05/2020 8:47 EST Vera Pike 10/05/2020 8:47 EST DCP GENERIC CODE Tracking Acuity : 3 - Urgent [facility] Tracking Group : Vera Ledesma 10/05/2020 8:47 EST ED Visit Reason : Fall Primary Care Provider : aneta Accompanied By : No One Arrival Mode : Private vehicle Chief Complaint : pt. presents to er with laceration above right eye after fall at work today. denies loc Vera Pike - 10/05/2020 8:47 EST Health History ED Grid Alcohol Use : No Caffeine Use : No Substance Abuse : No Tobacco Use : No Asthma/COPD : No Cancer : No CVA/TIA : No Mental Illness : No Dementia : No Diabetes : No General Cardiac : Yes, cardiac stent GI Medical History : No Line Therapist Hx : No Heart Attack : No [...] No Pathway Planning : No Vera Pike Maria Dolores 10/05/2020 8:47 EST Temp : 98.1 Deg F(Converted to: 36.7 Deg C) Temp Route : Oral/Mouth Systolic Blood Pressure : 138 mmHg Diastolic Blood Pressure : 78 mmHg Pulse Rate : 72 bpm Respiratory Rate : 20 Breaths/Min Oxygen Saturation : 98 % Pain Symptoms : Yes Height/Weight Med Rec : Open Medication Profile, Med Rec : Open Allergy Profile, Med Rec : Open Workman's Compensation : No Tetanus Immunization : Less than 5 years Preferred Communication Mode : Verbal Languages : Jamaican Child/Parent Domestic Concerns : None Threats of Suicide : No Vera Pike Maria Dolores 10/05/2020 8:47 EST Height and Weight Height Source : Stated Height Entry Format : Foster Height, Inches : 74 Inch(Converted to: 6 ft 2 Inch, 187.96 cm) Clinical Height : 187.96 cm Weight Source : Stated Type of Weight Measurement Est : Foster Weight, est lb : 247 lb Estimated Clinical Dosing Weight : 112.27 kg [place] Body Weight : 81 kg Body Surface Area Estimated : 2.42 m2 Body Mass Index Estimated : 31.78 kg/m2 Vera Pike Maria Dolores Sue 10/05/2020 8:47 EST Medication List ED Medications Reviewed : Yes Source of Information : Patient Vera Pike 10/05/2020 8:47 EST Medication List (As Of: 10/05/2020 08:52:47 EST) Home Meds Status: Processing ; Ordered As Mnemonic: Chantix 0.5 mg oral tablet ; Simple Display Line: 0 Refill(s) ; Action Display: Document ; Catalog Code: varenicline ; Order Dt/Tm: 10/05/2020 08:51:41 EST Status: Processing ; Ordered As Mnemonic: hydroCHLOROthiazide-losartan 12.5 mg-100 mg oral tablet ; Simple Display Line: 1 Tab, Oral, Daily, 0 Refill(s) ; Action Display: Document ; Catalog Code: losartan-hydrochlorothiazide ; Order Dt/Tm: 10/05/2020 08:49:58 EST Status: Processing ; Ordered As Mnemonic: meloxicam 15 mg oral tablet ; Simple Display Line: 15 mg, 1 Tab, Oral, Daily, 30 Tab, 0 Refill(s) ; Action Display: Document ; Catalog Code: meloxicam ; Order Dt/Tm: 10/05/2020 08:50:11 EST Status: Processing ; Ordered As Mnemonic: doxazosin 2 mg oral tablet ; Simple Display Line: 2 mg, 1 Tab, Oral, Daily, 30 Tab, 0 Refill(s) ; Action Display: Document ; Catalog Code: doxazosin ; Order Dt/Tm: 10/05/2020 08:49:21 EST Status: Processing ; Ordered As Mnemonic: rosuvastatin 20 mg oral capsule ; Simple Display Line: 20 mg, 1 Cap, Oral, Daily, 30 Cap, 0 Refill(s) ; Action Display: Document ; Catalog Code: rosuvastatin ; Order Dt/Tm: 10/05/2020 08:50:47 EST Status: Processing ; Ordered As Mnemonic: amLODIPine 5 mg oral tablet ; Simple Display Line: 5 mg, 1 Tab, Oral, Daily, 30 Tab, 0 Refill(s) ; Action Display: Document ; Catalog Code: amLODIPine ; Order Dt/Tm: 10/05/2020 08:51:23 EST Status: Processing ; Ordered As Mnemonic: finasteride 5 mg oral tablet ; Simple Display Line: 5 mg, 1 Tab, Oral, Daily, 30 Tab, 0 Refill(s) ; Action Display: Document ; Catalog Code: finasteride ; Order Dt/Tm: 10/05/2020 08:50:34 EST Status: Processing ; Ordered As Mnemonic: Metoprolol Tartrate 50 mg oral tablet ; Simple Display Line: 50 mg, 1 Tab, Oral, BID, 180 Tab, 0 Refill(s) ; Action Display: Document ; Catalog Code: metoprolol ; Order Dt/Tm: 10/05/2020 08:49:40 EST Status: Processing ; Ordered As Mnemonic: Plavix 75 mg oral tablet ; Simple Display Line: 75 mg, 1 Tab, Oral, Daily, 30 Tab, 0 Refill(s) ; Action Display: Document ; Catalog Code: clopidogrel ; Order Dt/Tm: 10/05/2020 08:49:31 EST Status: Processing ; Ordered As Mnemonic: Aspirin Low Strength 81 mg oral delayed release tablet ; Simple Display Line: 81 mg, 1 Tab, Oral, Daily, 90 Tab, 0 Refill(s) ; Action Display: Document ; Catalog Code: aspirin ; Order Dt/Tm: 10/05/2020 08:50:57 EST Allergy Profile (As Of: 10/05/2020 08:52:47 EST) Allergies (Active) No Known Allergies Estimated Onset Date: Unspecified ; Created By: Vera Pike; Reaction Status: Active ; Category: Drug ; Substance: No Known Allergies ; Type: Allergy ; Updated By: Vera Pike; Reviewed Date: 10/05/2020 8:48 EST Pain Pain Assessment Grid Location : Eye, right Intensity : 5 Vera Pike - 10/05/2020 8:47 EST Electronically signed by Kolton Candelario Conversion Diagnostic Imaging Manager Cerner at 12/10/2022 12:11 PM CDT documented in this encounter Plan of Treatment Not on file documented as of this encounter Visit Diagnoses Not on filedocumented in this encounter Care Teams Station Helper Relationship Specialty Start Date End Date Provider Not In System, Tavia PCP - General 09/16/22 documented as of this encounter
== END 2025-02-25 23:59 | disposition home or self-care (01) ==
LOC: RAD 07:05
PROVIDERS: PCP Nurse Practitioner; Visit Provider Nurse Practitioner
DX: I25.10 Atherosclerotic heart disease of native coronary artery without angina pectoris (principal); Z12.2 Encounter for screening for malignant neoplasm of respiratory organs; Z87.891 Personal history of nicotine dependence
CPT/HCPCS: 71271

== ENCOUNTER 2025-06-29 11:00 | Outpatient (CLI) | payer BC, SELFPAY ==
[2025-06-29 15:58] LABS: Alanine Aminotransferase 40 U/L (12-78); Albumin Level 3.8 g/dl (3.5-5.0); Albumin/Globulin Ratio 1.6 (1.1-1.8); Alkaline Phosphatase 86 U/L (38-126); Anion Gap 13.1 mEq/L (5-15); Aspartate Amino Transferase 28 U/L (17-59); Bilirubin,Total 0.7 mg/dl (0.2-1.3); Blood Urea Nitrogen 20 mg/dl (9-20); Calcium 9.0 mg/dl (8.4-10.2); Carbon Dioxide 26 mmol/L (22.0-30.0); Chloride 103 mmol/L (98-107); Creatinine,Serum 0.80 mg/dl (0.66-1.25); Estimated Glomerular Filt Rate 96 ml/min (>60); GFR (African American) 116 ML/MIN (>60); Globulin 2.4 g/dL (1.3-3.2); Glucose 106 mg/dl (74-100); Potassium 4.1 mmoL/L (3.5-5.1); Sodium 138 mmol/L (136-145); Total Protein,Serum 6.2 g/dl (6.3-8.2)
[2025-06-29 16:04] LABS: NT Pro Brain Natriuretic Pep. 25.4 pg/mL (0-125)
--- OUTSIDE RECORDS SUMMARY | 2025-06-30 12:47 | XMS_ITS | Encounter Summary ---
Author Organization [employer] ([place], [place], [place], [place]) Address [address] [place] [address] Care Team Providers Care Cloth Bleaching Range Operator Chief Name Role Phone Provider Not In System, McT Primary Care Provide r Unavailable Encounter Details Date Type Department Care Team (Late st Contact Info) Description 06/22/2020 Transcribed Document [facility] Cardiology [address] [place] [phone] Antione Eisenberg MD [address] [place] [address] [address] [place] [address] Social History Tobacco Use Types Packs/Day Years [...] 1. Normal study. 2. Ejection fraction 67%. /[id number] Antione Eisenberg MD NMF/AQ / NMF / MODL /[id number] documented in this encounter Plan of Treatment Upcoming Encounters Date Type Department Care Team (Late st Contact Info) Description 07/12/2025 9:30 AM EST Office Visit [facility] Cardiology [address] [place] [phone] Kristen Rodgers MD [address] [place] [phone] documented as of this encounter Visit Diagnoses Not on filedocumented in this encounter Care Teams Cloth Bleaching Range Operator Chief Relationship Specialty Start Date End Date Provider Not In System, McT PCP - General 09/16/22 documented as of this encounter
--- OUTSIDE RECORDS SUMMARY | 2025-06-30 12:47 | XMS_ITS | Encounter Summary ---
Author Organization [employer] ([place], [place], [place], [place]) Address [address] [place] [address] Care Team Providers Care Club Car Attendant Name Role Phone Provider Not In System, McT Primary Care Provide r Unavailable Encounter Details Date Type Department Care Team (Late st Contact Info) Description 10/05/2020 Transcribed Document [facility] [place] [facility] [place] [address] ProviderJavier MD [address] [place] [address] Social History Tobacco Use Types Packs/Day Years Used Date Smoking Tobacco: Never Assessed Sex and Gender Information Value Date Recorded Sex Assigned at Not on file Legal Sex Male 12:31 PM CDT Gender Identity Not on file Sexual Orientation Not on file documented as of this encounter Miscellaneous Notes * Cerner Conversion Note - Javier ProviderMD - 10/05/2020 1:47 PM TRAILER TRUCK DRIVER ANNIEK Triage ED Entered On: 10/05/2020 8:52 EST Performed On: 10/05/2020 8:47 EST by Vera Pike Triage Assessment Triage Date/Time : 10/05/2020 8:47 EST Vera Pike - 10/05/2020 8:47 EST DCP GENERIC CODE Tracking Acuity : 3 - Urgent ANN[facility] Tracking Group : Vera Ledesma 10/05/2020 8:47 EST ED Visit Reason : Fall Primary Care Provider : aneta Accompanied By : No One Arrival Mode : Private vehicle Chief Complaint : pt. presents to er with laceration above right eye after fall at work today. denies loc Vera Pike 10/05/2020 8:47 EST Health History ED Grid Alcohol Use : No Caffeine Use : No Substance Abuse : No Tobacco Use : No Asthma/COPD : No Cancer : No CVA/TIA : No Mental Illness : No Dementia : No Diabetes : No General Cardiac : Yes, cardiac stent GI Medical History : No Side Sawyer Hx : No Heart Attack : No [...] No Pathway Planning : No Vera Pike Vikram 10/05/2020 8:47 EST Temp : 98.1 Deg [...] Preferred Communication Mode : Verbal Languages : Iraqi Child/Parent Domestic Concerns : None Threats of Suicide : No Vera Pike 10/05/2020 8:47 EST Height and Weight Height Source : Stated Height Entry Format : [place] Height, Inches : 74 Inch(Converted to: 6 ft 2 Inch, 187.96 cm) Clinical Height : 187.96 cm Weight Source : Stated Type of Weight Measurement Est : [place] Weight, est lb : 247 lb Estimated Clinical Dosing Weight : 112.27 kg [place] Body Weight : 81 kg Body Surface Area Estimated : 2.42 m2 Body Mass Index Estimated : 31.78 kg/m2 Vera Pike Vikram 10/05/2020 8:47 EST Medication List ED Medications [...] 5 Vera Pike - 10/05/2020 8:47 EST documented in this encounter Plan of Treatment Upcoming Encounters Date Type Department Care Team (Late st Contact Info) Description 07/12/2025 9:30 AM EST Office Visit [facility] Cardiology [address] [place] [phone] Kristen Rodgers MD [address] [place], [place] [phone] documented as of this encounter Visit Diagnoses Not on filedocumented in this encounter Care Teams Club Car Attendant Relationship Specialty Start Date End Date Provider Not In System, Tavia PCP - General 09/16/22 documented as of this encounter
--- OUTSIDE RECORDS SUMMARY | 2025-06-30 12:48 | XMS_ITS | Encounter Summary ---
Author Organization [employer] ([place], [place], [place], [place]) Address [address] [place] [address] Care Team Providers Care Damage Prevention Coordinator Name Role Phone Provider Not In System, McT Primary Care Provide r Unavailable Encounter Details Date Type Department Care Team (Late st Contact Info) Description 10/05/2020 Transcribed Document [facility] [place] [facility] [place] [address] ProviderJavier MD [address] [place] [address] Social History Tobacco Use Types Packs/Day Years Used Date Smoking Tobacco: Never Assessed Sex and Gender Information Value Date Recorded Sex Assigned at Not on file Legal Sex Male 12:31 PM CDT Gender Identity Not on file Sexual Orientation Not on file documented as of this encounter Miscellaneous Notes * Cerner Conversion Note - Javier ProviderMD - 10/05/2020 2:22 PM AIR LIFT OPERATOR [facility] ADDRESS [place], [place] [phone] Name:Iftikhar Perrin Visit Date:10/05/2020 08:37:00 Emergency Department Care Providers: Physician: ELEN SHARIF DO Physician: Our doctors and staff appreciate your choice of [facility] for your emergency medical care. Read these instructions carefully. Please call us if you have any questions about your medical problem. [facility] Emergency Department [phone] [facility] Emergency Department [phone] [facility] Emergency Department [phone] Patient Education Materials Iftikhar Perrin has been [...] needed: ??? Soap. ??? Water. ??? Hand non destructive evaluation technician. ??? Bandage (dressing). ??? Antibiotic ointment. ??? Clean towel. How to take care of your cut Wash your hands with soap and water before touching your wound or changing your bandage. If soap and water are not available, use hand non destructive evaluation technician. If your doctor used stitches or moose: [...] off the skin. General instructions ??? Take zyhy-iwp-svgzrjs and prescription medicines only as told by [...] 02/10/2009 Document Revised: 2018 Document Reviewed: 09/14/2018 Elsevier Patient Education ? 2020 Elsevier Inc. Facial Laceration A facial laceration is [...] the skin glue. General instructions ??? Take hfrc-xkp-skumspn and prescription medicines only as told by [...] 02/10/2009 Document Revised: 12/16/2019 Document Reviewed: 09/25/2017 Algolux Patient Education ? 2020 Algolux Inc. Procedures Sutures, Lucerne, or Adhesive Wound Closure Wound closure refers [...] an instrument secures the staple edges together. Moose are often used to close surgical incisions. They are faster to use than sutures, and they cause less skin reaction. Moose need to be removed using a tool that bends the moose away from your skin. Follow these instructions at home: Medicines ??? Take qzfr-apz-eycgesm and prescription medicines only as told by [...] and water are not available, use hand non destructive evaluation technician. ??? Do not try to remove your [...] 05/20/2002 Document Revised: 08/07/2018 Document Reviewed: 07/02/2018 ElseForerun Patient Education ? 2020 Algolux Inc. FOLLOW UP CARE Most conditions that [...] x-ray department to pick them up o [facility] # [phone] o [facility] # [phone] o [facility] # [phone] ?? If you had cultures done and [...] quit. o National Network of Tobacco Cessation IKyxdaxab4-009-NYHM-NOW o [place] Lung Association o Rwandan Heart Association [phone] o Galile[employer]Mohan Su [phone] FINANCIAL INFORMATION ?? [facility] provides financial counseling to anyone who requests our services. ?? Emergency Physicians are independently contracted to provide your care. You will receive a bill for the care provided to you by the Physician and/or the Physician Crude Oil Treater. This will be a separate bill from [...] Patient Education Materials: Dermatology Laceration Care, Adult, Eezj-in-Cist Facial Laceration, Oyre-ag-Vwbl Procedures Sutures, Lucerne, or Adhesive Wound Closure Follow-Up Instructions: Follow Up With: Where: When: Return to Emergency Department Within 5 to 7 days Comments: for suture/staple removal I, Iftikhar Perrin, have received a copy of these discharge instructions and acknowledge understanding of these instructions. . I understand that my condition may require more care and will arrange for further treatment as recommended Patient Signature / or Patient Roofer Helper Provider Signature Date Electronically signed by Interface, [facility] Conversion Process Line Operator Cerner at 12/10/2022 12:11 PM CDT documented in this encounter Plan of Treatment Upcoming Encounters Date Type Department Care Team (Late st Contact Info) Description 07/12/2025 9:30 AM EST Office Visit [facility] Cardiology [address] [place] [phone] Kristen Rodgers MD [address] [place], [place] [phone] documented as of this encounter Visit Diagnoses Not on filedocumented in this encounter Care Teams Damage Prevention Coordinator Relationship Specialty Start Date End Date Provider Not In System, Tavia PCP - General 09/16/22 documented as of this encounter
--- OUTSIDE RECORDS SUMMARY | 2025-06-30 12:48 | XMS_ITS | Clinical Summary ---
Author Organization [employer] ([place], [place], [place], [place]) Address [address] [place] [address] Care Team Providers Care Lithographic Press Operator Apprentice Name Role Phone Provider Not In System, [...] Active Problems Problem Noted Date Diagnosed Date CAD (coronary artery disease) Benign essential hypertension Mixed hyperlipidemia Stented coronary artery Tobacco abuse disorder COPD (chronic obstructive pulmonary disease) Chronic low back pain BPH (benign prostatic hyperplasia) Family History Medical History Relation Name Comments [...] oz pur e alcohol) 2-3 beers daily Family and Community Support Answer John e Recorded Help with Day to Day Activities Not on file 09/18/2023 Feeling Lonely or Isolated Not on file 09/18 Educational Attainment Answer Date Huseyin rded Speak language other than Burundian at home Not on file 09/18/2023 Want help with school or training Not on file 09/18/2023 Substance Use Answer Date Recorded Used [...] 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 Not on file Not [...] 12/22/2024 2:56 PM EDT Plan of Treatment Upcoming Encounters Date Type Department Care Team (Late st Contact Info) Description 07/12/2025 9:30 AM EST Office Visit [facility] Cardiology [address] [place] [phone] Kristen Rodgers MD [address] [place], [place] [phone] Health Maintenance Due Date Last Done Comments [...] 2016 Abdominal Aortic Aneurysm (AAA) Screen 2021 Falls Risk Screening 09/08/2024 COVID-19 VACCINE ( - 2023- season) 2025 Influenza Vaccine (#1) 2025 07/18/2022 Tobacco Cessation Counseling and Screening (12+) 12/2212/22/2024 DTAP/TDAP/TD VACCINES (2 - Td or Tdap) 06/20/2029 Insurance [facility] Care Teams Lithographic Press Operator Apprentice Relationship Specialty Start Date End Date Provider Not In System, Tavia PCP - General 09/16/22
--- OUTSIDE RECORDS SUMMARY | 2025-06-30 12:48 | XMS_ITS | Clinical Summary ---
Author Organization [facility] Address [address] [place] [phone] Phone Care Team Providers Care Computer Science Teacher Name Role Phone Unavailable Primary Care Provider Unavailabl e Social History Tobacco Use Types Packs/Day Years Used Date Smoking Tobacco: Never Assessed Sex and Gender Information Value Date Recorded Sex Assigned at Not on file Legal Sex Male 12:09 AM EDT Gender Identity Not on file Sexual Orientation Not on file Plan of Treatment Health Maintenance Due Date Last Done Comments Annual Wellness Exam 1959 Hepatitis C Screening 1974 DTaP/TDaP/Td (1 - Tdap) 1975 Cologuard 2001 Colon Cancer Screening 2001 Colonoscopy 2001 FIT 2001 Sigmoidoscopy 2001 Virtual Colonography 2001 Pneumococcal Vaccine 50+ (1 of 1 - PCV) 2006 Zoster (1 of 2) 2006 COVID-19 Vaccine (2024-2 6 season) 2025 Influenza Vaccine (#1) 2025 Hepatitis B Vaccine Aged Out No longe r eligible based on patient's age to complete this topic Meningococcal B Vaccine Aged Out No l onger eligible based on patient's age to complete this topic
--- OUTSIDE RECORDS SUMMARY | 2025-06-30 12:48 | XMS_ITS | Encounter Summary ---
Author Organization [employer] ([place], [place], [place], [place]) Address [address] [place] [address] Care Team Providers Care Aerophysics Engineer Name Role Phone Provider Not In System, McT Primary Care Provide r Unavailable Encounter Details Date Type Department Care Team (Late st Contact Info) Description 10/09/2020 Transcribed Document [facility] [place] [facility] [place] [address] ProviderJavier MD [address] [place] [address] Social History Tobacco Use Types Packs/Day Years Used Date Smoking Tobacco: Never Assessed Sex and Gender Information Value Date Recorded Sex Assigned at Not on file Legal Sex Male 12:31 PM CDT Gender Identity Not on file Sexual Orientation Not on file documented as of this encounter Miscellaneous Notes * Cerner Conversion Note - Javier ProviderMD - 10/09/2020 3:14 PM MARKETING GRAPHICS SPECIALIST [facility] ADDRESS [place], [place] [phone] Name:Iftikhar Perrin Visit Date:10/09/2020 08:19:00 Emergency Department Care Providers: Physician: STEPHEN CRUZ MD Physician: Our doctors and staff appreciate your choice of [facility] for your emergency medical care. Read these instructions carefully. Please call us if you have any questions about your medical problem. [facility] Emergency Department [phone] [facility] Emergency Department [phone] [facility] Emergency Department [phone] Patient Education Materials Iftikhar Perrin has been [...] ??? Eating a soft-food diet. ??? Taking dlmg-kdv-lqmzykc medicines for pain. Follow these instructions at [...] times a day. General instructions ??? Take eadk-wdi-ubokytr and prescription medicines only as told by [...] applying ice, eating soft foods, and taking jomz-idm-frrdiqy pain medicines. This information is not intended to replace advice given to you by your health care provider. Make sure you discuss any questions you have with your health care provider. Document Released: 11/14/2004 Document Revised: 03/23/2019 Document Reviewed: 03/23/2019 FusionOps Patient Education ? 2020 [employer] Learning. FOLLOW UP CARE Most conditions that require [...] x-ray department to pick them up o [facility] # [phone] o [facility] # [phone] o [facility] # [phone] ?? If you had cultures done and [...] quit. o National Network of Tobacco Cessation ROspwaeph3-938-JYSU-NOW o Irish Lung Association o Irish Heart Association [phone] o [employer]Mohan Su [phone] FINANCIAL INFORMATION ?? [facility] provides financial counseling to anyone who requests our services. ?? Emergency Physicians are independently contracted to provide your care. You will receive a bill for the care provided to you by the Physician and/or the Physician Explosive Operator Grenade. This will be a separate bill from [...] as recommended Patient Signature / or Patient Machine Printer Hose Provider Signature Date Electronically signed by Interface, [facility] Conversion Plumbing Mechanic Cerner at 12/10/2022 12:11 PM CDT documented in this encounter Plan of Treatment Upcoming Encounters Date Type Department Care Team (Late st Contact Info) Description 07/12/2025 9:30 AM EST Office Visit [facility] Cardiology [address] [place] [phone] Kristen Rodgers MD [address] [place] [phone] documented as of this encounter Visit Diagnoses Not on filedocumented in this encounter Care Teams Aerophysics Engineer Relationship Specialty Start Date End Date Provider Not In System, Tavia PCP - General 09/16/22 documented as of this encounter
--- OUTSIDE RECORDS SUMMARY | 2025-06-30 12:48 | XMS_ITS | Clinical Summary ---
Author Organization [facility] Address [address] [place] [phone] Care Team Providers Care Endless Track Vehicle Mechanic Name Role Phone System, Provider Not In [...] Tdap) 06/21/2019 06/20/2019 [facility]-Depression Screening 12/11/2023 12/10/2022 [id number] Vaccine (1 - 2023- season) 2025 [facility]-Influenza Vaccine (#1) 2025 Colonoscopy 05/14/2026 05/14/2016 [facility]-Colorectal Cancer Screening [...] Narrative 05/14/2016 Ordered by an unspecified provider. us Historical Provider GI PROCEDURE ORDERABLES Nancie l Result from Last 3 Months or Most Recently Relevant to Health Maintenance [place] [address] [facility] [address] [place] [id number] [facility] Care Teams Endless Track Vehicle Mechanic Relationship Specialty Start Date End Date System, Provider Not In, [place] [address] PCP - General Family Medicine 11/22/22
--- OUTSIDE RECORDS SUMMARY | 2025-06-30 12:48 | XMS_ITS | Encounter Summary ---
Author Organization [employer] ([place], [place], [place], [place]) Address [address] [place] [address] Care Team Providers Care Solar Electric/Photovoltaic Installer Name Role Phone Provider Not In System, McT Primary Care Provide r Unavailable Encounter Details Date Type Department Care Team (Late st Contact Info) Description 10/05/2020 Transcribed Document [facility] Family Medicine [facility] [place] [address] ProviderJavier MD [address] [place] [address] [phone] Social History Tobacco Use Types Packs/Day Years Used Date Smoking Tobacco: Never Assessed Sex and Gender Information Value Date Recorded Sex Assigned at Not on file Legal Sex Male 12:31 PM CDT Gender Identity Not on file Sexual Orientation Not on file documented as of this encounter Miscellaneous Notes * Cerner Conversion Note - Javier ProviderMD - 10/05/2020 2:22 PM DOLL MAKER [facility] Emergency Department Depart Summary PERSON INFORMATION Name Iftikhar Perrin Age 64 Years 1955 Sex Male Language PCP Marital Status Phone [phone] Visit Id Visit Reason Fall Specialty Enc Type Emergency Med Service Referred by Track Group [facility] Discharge Tracking Id [id number] Checkout 10/05/2020 09:22:40 Checkin 10/05/2020 08:37:00 Acuity 3 - Urgent [facility] Dispo Type Arrival 10/05/2020 08:37:00 Reg Status LOS 000 00:45 Address: [facility] OM[place] JIANG [address] POWERFORMS PHYSICIAN NOTES VITALS INFORMATION Vital Sign Triage Temp 98.1 Temp Route Oral/Mouth Pulse Rate 72 Respiratory Rate 20 Blood Pressure 138/ 78 LOCATION INFORMATION Arrival Nurse Unit Room Bed 10/05/2020 08:37:00 [facility] ED Waitroom ([facility]) 10/05/2020 08:45:18 [facility] ED 4 10/05/2020 09:22:40 [facility] ED Checkout ([facility]) MEDICAL INFORMATION Allergy Info: No Known Allergies PATIENT EDUCATION INFORMATION Instructions: Sutures, Moose, or Adhesive Wound Closure; Laceration Care, Adult, Vgxu-bf-Dpfq; Facial Laceration, Kkvp-on-Lvly Follow up: With: Address: When: Return to Emergency Department Within 5 to 7 days Comments: for suture/staple removal DIAGNOSIS Electronically signed by Andree [facility] Conversion Teacher Hearing Impaired Cerner at 12/10/2022 12:11 PM CDT documented in this encounter Plan of Treatment Upcoming Encounters Date Type Department Care Team (Late st Contact Info) Description 07/12/2025 9:30 AM EST Office Visit [facility] Cardiology [address] [place], [place] [phone] Kristen Rodgers MD [address] [place] [address] [phone] documented as of this encounter Visit Diagnoses Not on filedocumented in this encounter Care Teams Solar Electric/Photovoltaic Installer Relationship Specialty Start Date End Date Provider Not In System, Tavia PCP - General 09/16/22 documented as of this encounter
--- OUTSIDE RECORDS SUMMARY | 2025-06-30 12:48 | XMS_ITS | Encounter Summary ---
Author Organization [employer] ([place], [place], [place], [place]) Address [address] [place] [address] Care Team Providers Care College Instructor Name Role Phone Provider Not In System, McT Primary Care Provide r Unavailable Encounter Details Date Type Department Care Team (Late st Contact Info) Description 10/09/2020 Transcribed Document [facility] Family Medicine [facility] [place] [address] ProviderJavier MD [address] [place] [address] [phone] Social History Tobacco Use Types Packs/Day Years Used Date Smoking Tobacco: Never Assessed Sex and Gender Information Value Date Recorded Sex Assigned at Not on file Legal Sex Male 12:31 PM CDT Gender Identity Not on file Sexual Orientation Not on file documented as of this encounter Miscellaneous Notes * Cerner Conversion Note - Javier ProviderMD - 10/09/2020 3:14 PM SECURITIES DEALER [facility] Emergency Department Depart Summary PERSON INFORMATION Name Iftikhar Perrin Age 64 Years 1955 Sex Male Language PCP Marital Status Phone [phone] Visit Id Visit Reason Facial Complaint Specialty Enc Type Emergency Med Service Referred by Track Group [facility] Discharge Tracking Id [id number] Checkout 10/09/2020 10:14:54 Checkin 10/09/2020 08:19:00 Acuity 4 - Non-urgent [facility] Dispo Type Arrival 10/09/2020 08:19:00 Reg Status LOS 000 01:55 Address: [address] [place] [address] POWERFORMS PHYSICIAN NOTES VITALS INFORMATION Vital Sign Triage Temp 98.9 Temp Route Oral/Mouth Pulse Rate 82 Respiratory Rate 18 Blood Pressure 122/ 77 LOCATION INFORMATION Arrival Nurse Unit Room Bed 10/09/2020 08:19:00 [facility] ED Waitroom ([facility]) 10/09/2020 08:58:06 [facility] ED 6 10/09/2020 10:14:54 [facility] ED Checkout ([facility]) MEDICAL INFORMATION Allergy Info: No Known Allergies PATIENT EDUCATION INFORMATION Instructions: Jaw Contusion Follow up: With: Address: When: Follow up with primary care provider Within 2-4 days DIAGNOSIS Electronically signed by Andree, [facility] Conversion Automatic Grinding Machine Operator Cerner at 12/10/2022 12:11 PM CDT documented in this encounter Plan of Treatment Upcoming Encounters Date Type Department Care Team (Late st Contact Info) Description 07/12/2025 9:30 AM EST Office Visit [facility] Cardiology [address] [place] [phone] Kristen Rodgers MD [address] [place] [address] [phone] documented as of this encounter Visit Diagnoses Not on filedocumented in this encounter Care Teams College Instructor Relationship Specialty Start Date End Date Provider Not In System, Tavia PCP - General 09/16/22 documented as of this encounter
--- OUTSIDE RECORDS SUMMARY | 2025-06-30 12:48 | XMS_ITS | Referral Summary ---
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
--- OUTSIDE RECORDS SUMMARY | 2025-06-30 12:48 | XMS_ITS | Encounter Summary ---
Author Organization [employer] ([place], [place], [place], [place]) Address [address] [place] [address] Care Team Providers Care Administrative And Program Specialist Name Role Phone Provider Not In System, McT Primary Care Provide r Unavailable Encounter Details Date Type Department Care Team (Late st Contact Info) Description 10/09/2020 Transcribed Document [facility] Family Medicine [facility] [place] [address] ProviderJavier MD [address] [place] [address] Social History Tobacco Use Types Packs/Day Years Used Date Smoking Tobacco: Never Assessed Sex and Gender Information Value Date Recorded Sex Assigned at Not on file Legal Sex Male 12:31 PM CDT Gender Identity Not on file Sexual Orientation Not on file documented as of this encounter Miscellaneous Notes * Cerner Conversion Note - Javier ProviderMD - 10/09/2020 3:14 PM AUDIT SENIOR ASSOCIATE [facility] ADDRESS [place], [place] [phone] Name:Iftikhar Perrin Visit Date:10/09/2020 08:19:00 Emergency Department Care Providers: Physician: STEPHEN CRUZ MD Physician: Our doctors and staff appreciate your choice of [facility] for your emergency medical care. Read these instructions carefully. Please call us if you have any questions about your medical problem. [facility] Emergency Department [phone] [facility] Emergency Department [phone] [facility] Emergency Department [phone] Patient Education Materials Iftikhar Perrin has been [...] ??? Eating a soft-food diet. ??? Taking zxdd-fvh-fkvpozz medicines for pain. Follow these instructions at [...] times a day. General instructions ??? Take lxje-gsh-gkvfsgb and prescription medicines only as told by [...] applying ice, eating soft foods, and taking qbbi-ehc-tvaygiq pain medicines. This information is not intended to replace advice given to you by your health care provider. Make sure you discuss any questions you have with your health care provider. Document Released: 11/14/2004 Document Revised: 03/23/2019 Document Reviewed: 03/23/2019 [employer] Patient Education ? 2020 [employer]. FOLLOW UP CARE Most conditions that require [...] x-ray department to pick them up o [facility] # [phone] o [facility] # [phone] o [facility] # [phone] ?? If you had cultures done and [...] quit. o National Network of Tobacco Cessation OEuoqzdrq5-070-YZTX-NOW o [employer] Lung Association o [place] Heart Association [phone] o [employer]Mohan Su [phone] FINANCIAL INFORMATION ?? [facility] provides financial counseling to anyone who requests our services. ?? Emergency Physicians are independently contracted to provide your care. You will receive a bill for the care provided to you by the Physician and/or the Physician Landscape Supervisor. This will be a separate bill from [...] as recommended Patient Signature / or Patient Senior Physician Provider Signature Date Date/Time 10/09/2020 10:14 [facility] [...] dosages of all your medications. I, Iftikhar Perrin Yamila, have received a copy of discharge home medications and acknowledged understanding of these instructions. I hereby certify that I have received the above instructions and that all of my concerns/questions regarding this visit have been adequately answered. Patient Signature Date Witnessed and/or instructed by (signature) Date documented in this encounter Plan of Treatment Upcoming Encounters Date Type Department Care Team (Danika murphy Contact Info) Description 07/12/2025 9:30 AM EST Office Visit [facility] Cardiology [address] [place] [address] [place] [address] [place] [phone] documented as of this encounter Visit Diagnoses Not on filedocumented in this encounter Care Teams Administrative And Program Specialist Relationship Specialty Start Date End Date Provider Not In System, McT PCP - General 09/16/22 documented as of this encounter
--- OUTSIDE RECORDS SUMMARY | 2025-06-30 12:48 | XMS_ITS | Encounter Summary ---
Author Organization [employer] ([place], [place], [place], [place]) Address [address] [place] [address] Care Team Providers Care Tanbark Peeler Name Role Phone Provider Not In System, McT Primary Care Provide r Unavailable Encounter Details Date Type Department Care Team (Late st Contact Info) Description 10/09/2020 Transcribed Document [facility] [place] [facility] [place] [address] ProviderJavier MD [address] [place] [address] Social History Tobacco Use Types Packs/Day Years Used Date Smoking Tobacco: Never Assessed Sex and Gender Information Value Date Recorded Sex Assigned at Not on file Legal Sex Male 12:31 PM CDT Gender Identity Not on file Sexual Orientation Not on file documented as of this encounter Miscellaneous Notes * Cerner Conversion Note - Javier ProviderMD - 10/09/2020 1:28 PM SEMIAUTOMATIC STITCHER OPERATOR SIMI Triage ED Entered On: 10/09/2020 8:32 EST Performed On: 10/09/2020 8:28 EST by Vera Pike Triage Assessment Triage Date/Time : 10/09/2020 8:28 EST Vera Pike 10/09/2020 8:28 EST DCP GENERIC CODE Tracking Acuity : 4 - Non-urgent SIMI Tracking Group : Vera Ledesma 10/09/2020 8:28 [...] mnore on the right side Vera Pike Vikram 10/09/2020 8:28 EST Health History ED Grid Alcohol Use : No Caffeine Use : No Substance Abuse : No Tobacco Use : No Asthma/COPD : No Cancer : No CVA/TIA : No Mental Illness : No Dementia : No Diabetes : No General Cardiac : Yes, cardiac stent GI Medical History : No Rotary Planer Set Up Operator Hx : No Heart Attack : No [...] Pathway Planning : No Vera Pike Vikram 10/09/2020 8:28 EST Temp : 98.9 Deg [...] Preferred Communication Mode : Verbal Languages : Grenadian Child/Parent Domestic Concerns : None Threats of Suicide : No Vera Pike Vikram 10/09/2020 8:28 EST Height and Weight Height Source : Stated Height Entry Format : Freestone Height, Inches : 74 Inch(Converted to: 6 ft 2 Inch, 187.96 cm) Clinical Height : 187.96 cm Weight Source : Stated Type of Weight Measurement Est : Freestone Weight, est lb : 247 lb Estimated Clinical Dosing Weight : 112.27 kg Norman Body Weight : 81 kg Body Surface Area Estimated : 2.42 m2 Body Mass Index Estimated : 31.78 kg/m2 Vera Pike Vikram 10/09/2020 8:28 EST Medication List ED Medications Reviewed : No home medications Source of Information : Patient Vera Pike Vikram 10/09/2020 8:28 EST Medication List (As Of: [...] Description 07/12/2025 9:30 AM EST Office Visit [facility] Cardiology [address] [place] [phone] Kristen Rodgers MD [address] [place] [address] documented as of this encounter Visit Diagnoses Not on filedocumented in this encounter Care Teams Tanbark Peeler Relationship Specialty Start Date End Date Provider Not In System, [facility] PCP - General 09/16/22 documented as of this encounter
--- OUTSIDE RECORDS SUMMARY | 2025-06-30 12:48 | XMS_ITS | Data Portability ---
Author Organization [facility] BRIANNA Kennedy BACOVA CLOSED Address [address] [facility] [address] [place] [address] Care Team Providers Care Survey Research Center Director Name Role Phone VICKI AMSO Primary Care Provider GIANNA COSTELLO Product Development Chemist Assessment No assessment recorded. Plan of Treatment Reminders Order Date Submit Date Provider Last Modified By Organization Details Last Modified Time Details Appointments None recorded. Lab surgical pathology study [address] [facility], [address] [place] [address], [phone], 11:34:05 Referral None recorded. Procedures None recorded. [...] DAK - Cryo AK completed Evy Salazar [facility] 05/13/2024 08:36:05 4 DAK - Shave removal face/ears completed Zaire Arevalo [facility] 11/19/2023 08:20:22 Imaging Results None recorded. Procedure [...] in Arterial blood by Pulse oximetry Systolic And Diastolic Provider Name and Address Organization Details Last Updated DateTime 7 182.88 cm 724784. 61 g 35.4 kg/m2 97.2 [degF] 72 /min 20 /min 96 % 96 % 128/80 mm[Hg] Barbara Morris [facility] 7 18:28:11 Social History Question Answer Notes LastModified by [employer] Details LastModified Time Tobacco Smoking Status Current Every Day Smoker Barbara Morris [facility] 10/28/2016 18:32:01 What Was The Date Of Your Most Recent Tobacco Screening? 11/19/2023 Information not available 11/19/2023 Sex: Unknown Functional Status Question Answer Note LastModified by [employer] Details LastModified Time What is your level of alcohol consumption? Occasional Information not available 11/19/2023 Mental Status None recorded. Family History Nothing Reported. Medical History Condition Response Skin Cancer Y Squamous Cell Carcinoma Y Arthritis Y Hypertension Y High Cholesterol Y Past Encounters Encounter ID Performer Location Encounter Start Date Encounter Closed Date Diagnosis/Indication Diagnosis SNOMED-CT Code Diagnosis ICD10 Code Diagnosis IMO Codes Diagnosis Note [id number] WILL ROE APRN SAME DAY JESSAMINE [address] [facility] [place] [phone] 10/28/2016 17:50:08 10/29/2016 12:13:37 Concussion with no loss of consciousness 34515481 S06.0X0A It is 6:[address] needs [address] head and it cannot be done here tonight. Explained that he could have internal head damage such as bleed and that can only be checked with imaging. He wants to go to [facility] closer to his home. ER was called and confirmed they have CT - he will be seen there thru ER - notes sent with him Headache [id number] R51 [id number] TOM SZYMANSKI [address] [phone] 11/19/2023 07:45:30 11/19/2023 13:08:39 Neoplasm of uncertain behavior of skin 72994625 D48.5 L cheek - 3mm purple papule. r/o: angiomaBio psy was taken today. Disorder of nail 1672881 8 L60.9 Recommend soaking in water and vinegar mixture.Pt will call if worsening or not improving [id number] LOI BECKWITH PA-C [address] [phone] 05/13/2024 07:59:15 05/17/2024 13:57:53 Actinic keratosis 072554068 L57.0 Precancero us lesion(s). Will LN2 today.Can leave a white discolorat ion in the areas when LN2 is performed. Follow-up if lesion(s) persists or do not resolve. Onychomycosis 523426396 B35.1 Nature of the diagnosis was explained. [...] ID Guarantor Name 05/12/2024 1 [place] [id number] Iftikhar Perrin [id number] 95 Iftikhar Perrin 05/13/2024 1 [place] [id number] Iftikhar Perrin [id number] Iftikhar Perrin Notes Date Note Type Note Provider Name and Address Organization Details Recorded Time 10/28/2016 text/html ROS as noted in the HPI WALKIN HeadacheWas working out in [employer] yesterday - had tree limb fall and [...] last night. He went to work today ([employer]) ; he denies any confusion - just the GOODEN. He denies any abd pain.Neck just alittle achy. No numbness in arms or hands.Denies any visual changes.Denies any weakness. Hx CAD - stent in 2006. He denies any chest pain and no SOB. WILL ROE, LAWYER [employer] [address] [place], [address], [facility] 10/28/2016 19:05:32 11/19/2023 text/html I have a spot on my face that I'd like removed. - Location: Left cheek.- Duration: One year.- Prior treatments: None mentioned.- REPORTS: Raised, brown spot on face. GIANNA COSTELLO PA-C [address] [place], [address], [facility] 11/19/2023 08:35:23 05/13/2024 text/html ROS as noted in the HPI I have spots of concernLocation: bilateral armsReports: rough spots, one near prior NMSC- patient would also to have right thumb nail checked History of SCCL forearm, R dorsal hand, R proximal dorsal hand LOI BECKWITH PA-C [address] [place], [address], [facility] 05/14/2024 15:27:25
--- OUTSIDE RECORDS SUMMARY | 2025-06-30 12:48 | XMS_ITS | Encounter Summary ---
Author Organization [employer] ([place], [place], [place], [place]) Address [address] [place] [address] Care Team Providers Care Channel Executive Name Role Phone Provider Not In System, McT Primary Care Provide r Unavailable Encounter Details Date Type Department Care Team (Late st Contact Info) Description 10/05/2020 Transcribed Document [facility] [place] [facility] [place] [address] ProviderJavier MD [address] [place] [address] Social History Tobacco Use Types Packs/Day Years Used Date Smoking Tobacco: Never Assessed Sex and Gender Information Value Date Recorded Sex Assigned at Not on file Legal Sex Male 12:31 PM CDT Gender Identity Not on file Sexual Orientation Not on file documented as of this encounter Miscellaneous Notes * Cerner Conversion Note - Javier ProviderMD - 10/05/2020 2:22 PM DEMURRAGE WORKER [facility] ADDRESS [place], [place] [phone] Name:Iftikhar Perrin Visit Date:10/05/2020 08:37:00 Emergency Department Care Providers: Physician: ELEN SHARIF DO Physician: Our doctors and staff appreciate your choice of [facility] for your emergency medical care. Read these instructions carefully. Please call us if you have any questions about your medical problem. [facility] Emergency Department [phone] [facility] Emergency Department [phone] [facility] Emergency Department [phone] Patient Education Materials Iftikhar Perrin has been [...] needed: ??? Soap. ??? Water. ??? Hand manager grant. ??? Bandage (dressing). ??? Antibiotic ointment. ??? Clean towel. How to take care of your cut Wash your hands with soap and water before touching your wound or changing your bandage. If soap and water are not available, use hand manager grant. If your doctor used stitches or moose: [...] off the skin. General instructions ??? Take iull-ghr-bsmlswf and prescription medicines only as told by [...] the skin glue. General instructions ??? Take yzqh-tgg-gngzagv and prescription medicines only as told by [...] 02/10/2009 Document Revised: 12/16/2019 Document Reviewed: 09/25/2017 [employer] Patient Education ? 2020 [employer] Procedures Sutures, [place], or Adhesive Wound Closure Wound closure refers [...] an instrument secures the staple edges together. Mosoe are often used to close surgical incisions. They are faster to use than sutures, and they cause less skin reaction. Moose need to be removed using a tool that bends the moose away from your skin. Follow these instructions at home: Medicines ??? Take cxmg-woi-ckthkpy and prescription medicines only as told by [...] and water are not available, use hand manager grant. ??? Do not try to remove your [...] 05/20/2002 Document Revised: 08/07/2018 Document Reviewed: 07/02/2018 [employer] Patient Education ? 2020 [employer] FOLLOW UP CARE Most conditions that [...] x-ray department to pick them up o [facility] # [phone] [facility] # [phone] o [facility] # [phone] ?? If you had cultures done and [...] quit. o National Network of Tobacco Cessation ZOlejgjmf4-210-XHHC-NOW o [place] Lung Association o [place] Heart Association 1-322539-2952 o [employer]Mohan Su [phone] FINANCIAL INFORMATION ?? [facility] provides financial counseling to anyone who requests our services. ?? Emergency Physicians are independently contracted to provide your care. You will receive a bill for the care provided to you by the Physician and/or the Physician Assistant Grocery Store Manager. This will be a separate bill from [...] Patient Education Materials: Dermatology Laceration Care, Adult, Toxr-wy-Qzxf Facial Laceration, Lpxs-kv-Girj Procedures Sutures, [place], or Adhesive Wound Closure Follow-Up Instructions: Follow [...] as recommended Patient Signature / or Patient Certified Dialysis Technician Provider Signature Date Date/Time 10/05/2020 09:22 [facility] [place] Home Medications Name Jagjit Perrinvanesa Driscoll Allergy Info: No Known Allergies Allergy Comment: [...] by (signature) Date Electronically signed by Interface, [facility] Conversion Blow Mold Machine Operator Cerner at 12/10/2022 12:11 PM CDT documented in this encounter Plan of Treatment Upcoming Encounters Date Type Department Care Team (Late st Contact Info) Description 07/12/2025 9:30 AM EST Office Visit [facility] Cardiology [address] [place] [phone] Kristen Rodgers MD [address] [place] [phone] documented as of this encounter Visit Diagnoses Not on filedocumented in this encounter Care Teams Channel Executive Relationship Specialty Start Date End Date Provider Not In System, Tavia PCP - General 09/16/22 documented as of this encounter
[2025-07-01 20:48] LABS: Hematocrit 45.4 % (42.0-52.0); Hemoglobin 14.8 g/dL (14.1-18.0); Immature Granulocytes % 0.3 %; Mean Corpuscular HGB Conc 32.6 g/dL (31.8-35.4); Mean Corpuscular Hemoglobin 29.9 pg (27.0-31.2); Mean Corpuscular Volume 91.7 fl (80-94); Nucleated Red Blood Cells % 0 %; Platelet Count 196 K/mm3 (142-424); Red Blood Count 4.95 M/mm3 (4.60-6.20); Red Cell Distribution Width-SD 46.6 fL; White Blood Count 13.3 K/mm3 (4.8-10.8)
== END 2025-06-29 23:59 | disposition home or self-care (01) ==
LOC: LAB.DROPOF 06-30 12:44
PROVIDERS: PCP Nurse Practitioner; Visit Provider Nurse Practitioner
DX: R06.01 Orthopnea (principal)
CPT/HCPCS: 80053; 83880; 85025

== ENCOUNTER 2025-07-01 15:55 | Outpatient (CLI) | payer BC, SELFPAY ==
[2025-07-01 20:48] LABS: Hematocrit 45.4 % (42.0-52.0); Hemoglobin 14.8 g/dL (14.1-18.0); Immature Granulocytes % 0.3 %; Mean Corpuscular HGB Conc 32.6 g/dL (31.8-35.4); Mean Corpuscular Hemoglobin 29.9 pg (27.0-31.2); Mean Corpuscular Volume 91.7 fl (80-94); Nucleated Red Blood Cells % 0 %; Platelet Count 196 K/mm3 (142-424); Red Blood Count 4.95 M/mm3 (4.60-6.20); Red Cell Distribution Width-SD 46.6 fL; White Blood Count 13.3 K/mm3 (4.8-10.8)
--- OUTSIDE RECORDS SUMMARY | 2025-07-05 09:48 | XMS_ITS | Clinical Summary ---
Author Organization [facility] Address [address] [place] [address] Phone Care Team Providers Care Certified Prosthetist Name Role Phone Unavailable Primary Care Provider [...]
--- OUTSIDE RECORDS SUMMARY | 2025-07-05 09:48 | XMS_ITS | Clinical Summary ---
Author Organization [facility] Address [address] [place] [id number] Care Team Providers Care Data Engineer Name Role Phone System, Provider Not In [...] Tdap) 06/21/2019 06/20/2019 [facility]-Depression Screening 12/11/2023 12/10/2022 [facility]-DURAT-96 Vaccine (1 - 2023- season) 2025 [facility]-Influenza [...] Recently Relevant to Health Maintenance [place] [address] [facility] [address] [place] [id number] [facility] Care Teams Data Engineer Relationship Specialty Start Date End Date System, Provider Not In, [place] [address] PCP - General Family Medicine 11/22/22
== END 2025-07-01 23:59 | disposition home or self-care (01) ==
LOC: LAB.DROPOF 07-05 09:28
PROVIDERS: Nurse Practitioner; PCP Family Medicine; Visit Provider Family Medicine
DX: R06.01 Orthopnea (principal)
CPT/HCPCS: 85025